=== PATIENT | female | born 1980 | race Two or more races ===

== ENCOUNTER 2025-08-03 17:40 | Inpatient (IN) | payer MEDICAID, OTHER ==
[~2025-08-03] VITALS: Ht 165.1 cm; Wt 42.1 kg
--- NOTE | 2025-08-03 18:12 | ED.PDOC ---
GI ASSESSMENT HPI Comments 45-year-old female who came to ER via EMS for nausea and vomiting. Patient is on hospice care for lung cancer with mets. Has been having episodes of nausea and vomiting for the past 5 hours, unable to keep anything in, even her medications. Noted generalized weakness. Blood sugar on scene was 102, saturating 98% on room air. Chief Complaint: Nausea/Vomiting Time Seen by MD: 18:11 Primary Care Provider: LAUREN Pbalo Notes: Nurses Notes, Cell Efficiency Supervisor Notes Allergies: Coded Allergies: NO KNOWN ALLERGIES (Unverified , 11/29/15) Information Source: Patient, Emergency Med Personnel Mode of Arrival: EMS Timing: Hours Duration: Since onset Vomitus: Watery Severity: Moderate Recent Hx of: Other (Lung cancer) Associated sign and symptoms: Nausea, Vomiting, Faintness Past Medical History PAST MEDICAL HISTORY: Cancer (Lung) Surgical History (Other): Ileostomy COMPUTER SPECIALIST History: Denies all COMPUTER SPECIALIST Hx Family History Family History: Reviewed,noncontributory to illness Social History Smoker: Non-Smoker Alcohol: Denies ETOH Use Drugs: Denies Drug Use Lives In: Home Constitutional: reports: weakness; denies: chills, diaphoresis, fatigue, fever, malaise, sweats, others EENTM: denies: blurred vision, double vision, ear bleeding, ear discharge, ear drainage, ear pain, ear ringing, eye pain, eye redness, hearing loss, mouth pain, mouth swelling, nasal discharge, nose bleeding, nose congestion, nose pain, photophobia, tearing, throat pain, throat swelling, voice changes, others Respiratory: denies: cough, hemoptysis, orthopnea, SOB at rest, shortness of breath, SOB with excertion, stridor, wheezing, others Cardiovascular: denies: chest pain, dizzy spells, diaphoresis, Dyspnea on exertion, edema, irregular heart beat, left arm pain, lightheadedness, palpitations, PND, syncope, others Gastrointestinal: reports: nausea, vomiting; denies: abdomen distended, abdominal pain, blood streaked bowels, constipated, diarrhea, dysphagia, diffi culty swallowing, hematemesis, melena, poor appetite, poor fluid intake, rectal bleeding, rectal pain, others Genitourinary: denies: abnormal vagina bleeding, burning, dyspareunia, dysuria, flank pain, frequency, hematuria, incontinence, pain, , vagina discharge, urgency, others Neurological: denies: dizziness, fainting, headache, left sided numbness, left sided weakness, numbness, paresthesia, pre-existing deficit, right sided numbness, right sided weakness, seizure, speech problems, tingling, tremors, weakness, others Musculoskeletal: denies: back pain, gout, joint pain, joint swelling, muscle pain, muscle stiffness, neck pain, others Integumetry: denies: bruises, change in color, change in hair/nails, dryness, laceration, lesions, lumps, rash, wounds, others Allergic/Immunocompromised: denies: Difficulty Healing, Frequent Infections, Hives, Itching, others Hematologic/Lymphatic: denies: anemia, blood clots, easy bleeding, easy bruising, swollen glands, others Endocrine: denies: excessive hunger, excessive sweating, excessive thirst, excessive urination, flushing, intolerance to cold, intolerance to heat, unexplained weight gain, unexplained weight loss, others Psychiatric: denies: anxiety, bipolar disorder, depression, hopeless, panic disorder, schizophrenia, sleepless, suicidal, others Physical Exam General Appearance: No Apparent Distress, Normal HEENT: Normal ENT Inspection, Pharynx Normal, TMs Normal Neck: Full Range of Motion, Non-Tender, Normal, Normal Inspection Respiratory: Chest Non-Tender, Lungs Clear, No Accessory Muscle Use, No Respiratory Distress, Normal Breath Sounds Cardiovascular: No Edema, No JVD, No Murmur, No Gallop, Normal Peripheral Pulses, Regular Rate/Rhythm Breast Exam: Deferred Gastrointestinal: No Organomegaly, Non Tender, No Pulsatile Mass, Normal Bowel Sounds, Soft Genitalia: Deferred Pelvic: Deferred Rectal: Deferred Extremities: No calf tenderness, Normal capillary refill, Normal inspection, Normal range of motion, Non-tender, No pedal edema Musculoskeletal : Apperance: Normal Neurologic: Alert, homoeopath II-XII nml as Tested, No Motor Deficits, Normal Affect, Normal Mood, No Sensory Deficits Cerebellar Function: Normal Reflexes: Normal Skin: Dry, Normal Color, Warm Lymphatic: No Adenopathy Was a procedure done? Was a procedure done?: No GI differential Dx Differential Diagnosis: Diverticular disease, Gastritis/PUD, Gastroenteritis, Dehydration, Electrolyte Imbalance, Food Poisoning X-Ray, Labs, Meds, VS Vital Signs Date Time Temp Pulse Resp B/P (MAP) Pulse Ox O2 Delivery O2 Flow Rate FiO2 08/03/25 18:03 107 08/03/25 17:50 98.0 103 16 163/112 98 98.0 Lab Test 08/03/25 19:05 Range/Units White Blood Count 21.9 H 4.4-10.8 10^3/uL Red Blood Count 4.07 4.0-5.20 10^6/uL Hemoglobin 11.4 L 12.2-16.2 g/dL Hematocrit 37.1 36.0-46.0 % Mean Corpuscular Volume 91.1 80.0-100.0 fL Mean Corpuscular Hemoglobin 28.0 28.0-32.0 pg Mean Corpuscular Hemoglobin Concent 30.7 L 32.0-36.0 g/dL Red Cell Distribution Width 19.1 H 11.8-14.3 % Platelet Count 623 H 140-450 10^3/uL Mean Platelet Volume 7.7 6.9-10.8 fL Neutrophils (%) (Auto) 89.4 H 37.0-80.0 % Lymphocytes (%) (Auto) 5.3 L 10.0-50.0 % Monocytes (%) (Auto) 4.7 0.0-12.0 % Eosinophils (%) (Auto) 0.5 0.0-7.0 % Basophils (%) (Auto) 0.1 0.0-2.0 % Neutrophils # (Auto) 19.6 H 1.6-8.6 10 ^3/uL Lymphocytes # (Auto) 1.2 0.4-5.4 10 ^3/uL Monocytes # (Auto) 1.0 0-1.3 10 ^3/uL Eosinophils # (Auto) 0.1 0-0.8 10 ^3/uL Basophils # (Auto) 0 0-0.2 10 ^3/uL Nucleated Red Blood Cells 0.0 % Sodium Level Pending Potassium Level Pending Chloride Level Pending Carbon Dioxide Level Pending Anion Gap Pending Blood Urea Nitrogen Pending Creatinine Pending Glomerular Filtration Rate Calc Pending BUN/Creatinine Ratio Pending Serum Glucose Pending Lactic Acid Level Pending Calcium Level Pending Magnesium Level Pending Total Bilirubin Pending Aspartate Amino Transferase (AST) Pending Alanine Aminotransferase (ALT) Pending Alkaline Phosphatase Pending Troponin I High Sensitivity Pending Total Protein Pending Albumin Pending PROCEDURE(s): ABPL - CT AB PEL WO CON-NO ORAL OR IV REASON: abd pain h/o colon cancer ORDER NUMBER(s): [id number], ACCESSION NUMBER(s): [id number] CLINICAL HISTORY: abd pain h/o colon cancer TECHNIQUE: CT of the abdomen and pelvis was performed without intravenous contrast. This exam was performed according to our departmental dose optimization program. Up-to-date CT equipment and radiation dose reduction techniques are utilized as appropriate. 5.07 CTDI: 5.07 DLP: 272.39 WID: COMPARISON: None FINDINGS: Lower Thorax: Multiple bibasilar pulmonary nodules. A office machines sales representative left lower lobe pulmonary nodule measures 9 mm on series 3, image 19. Heart size is normal. Liver and Biliary system: Hepatomegaly measuring 22 cm craniocaudal. There are multiple hypodense masses in both lobes of the liver. A hypodense lesion in segment 7 measures 4.7 cm on series 2, image 16. Gallbladder is normal caliber. There is no biliary ductal dilatation. Spleen: Unremarkable. Adrenal Glands and Kidneys: Normal adrenal glands. There is moderate right and severe left hydronephrosis which appears to transition at the pelvic brim. No discrete obstructing calculus is seen. Asymmetric atrophy of the left kidney. Pancreas and Retroperitoneum: Grossly normal pancreas. Mildly prominent retroperitoneal lymph nodes. Aorta and Major Vessels: A iliac vessels are normal in caliber. Bowel, Mesentery and Peritoneal space: Prior distal colon resection with distal colon anastomosis. The large bowel is decompressed. There is a right lower quadrant ostomy which contains a surgical clip and may be the site of ileocolonic anastomosis.. There is moderate fluid and gas distention of the stomach and multiple small bowel loops which appear diffusely dilated. The dilatation is more pronounced proximally where a left abdominal small bowel loop measures 4.1 cm on series 2, image 55. There is no free intraperitoneal air. Scattered nodules are seen throughout the mesentery. No well-formed fluid collection. Pelvis: Urinary bladder is mildly distended. There is no pelvic lymphadenopathy. Probable prior hysterectomy. Abdominal wall and Osseous Structures: No destructive osseous lesion. IMPRESSION: 1. Small-bowel obstruction with dilated small bowel, more pronounced in the left abdominal small bowel which measures up to 4.1 cm. The large bowel is decompressed. The transition may be at the level of the right lower quadrant ostomy. 2. No free air or abscess. 3. Prior distal colon resection with anastomosis. 4. Hepatic metastatic disease. 5. Pulmonary metastatic disease. 6. Moderate right and severe left hydronephrosis which appears turns transition at the level of the pelvic brim. No obstructing calculus is seen. Asymmetric atrophy of the left kidney. ATED BY: REYNA CASTRO MD DICTATED DATE/TIME: 08/03/251913 SIGNED BY: REYNA CASTRO MD CHEST RADIOGRAPH Indication: Sob Technique: Single frontal view of the chest was obtained COMPARISON: None FINDINGS: Lines and Tubes: None Lungs: Congestion Pleura: No effusion. No pneumothorax. Cardiomediastinal contours: Unremarkable Bones: Unremarkable IMPRESSION: Increased interstital prominence. This may represent pulmonary vascular congestion and/or viral pneumonia. Clinical correlation advised. Time of 1ST Reevaluation: 18:09 Reevaluation 1ST: Unchanged Patient Education/Counseling: Diagnosis, Treatment Family Education/Counseling: No Family Present SEPSIS Sepsis Screen Date sepsis recognized/suspect: Aug 03, 2025 Time Sepsis recognized/suspect: 1750 Recent Procedure: No On Antibiotic Therapy: No Respiratory Rate >20: No Heart Rate >90: Yes Temp<36 C (96.8 F) or >38.3 C: No SBP <90 or MAP <65 mmHG: No New Acute Mental Status Change: No Is the patient on CPAP, BIPAP,: No Physician Orders Comprehensive Metabolic Panel (08/03/25 18:00) Chest Portable (08/03/25 18:00) Urinalysis (08/03/25 18:00) Magnesium (08/03/25 18:00) Troponin-I Hs (08/04/25 00:00) Troponin-I Hs (08/04/25 03:00) Troponin-I Hs (08/04/25 06:00) Blood Culture (08/03/25 18:01) Electrocardigram (08/03/25 18:01) Lactic Acid W/ Reflex Order (08/03/25 18:01) Troponin-I Hs (08/03/25 19:01) Troponin-I Hs (08/03/25 21:01) Ct Ab Pel Wo Con-No Oral Or Iv (08/03/25 18:07) Vital Signs Date Time Temp Pulse Resp B/P (MAP) Pulse Ox O2 Delivery O2 Flow Rate FiO2 08/03/25 18:03 107 08/03/25 17:50 98.0 103 16 163/112 98 98.0 Laboratory Tests Test 08/03/25 19:05 Lactic Acid Level Pending White Blood Count 21.9 10^3/uL (4.4-10.8) H Departure 1 Departure Time of Disposition: 19:40 Impression: Primary Impression: Bowel obstruction Disposition: 02 SHORT TERM HOSPITAL Condition: Guarded Comments 45-year-old female with a history of colon cancer with lung Mets now with abdominal pain and generalized weakness. White blood cell count high at 21.9. CT of the abdomen and pelvis shows likely bowel obstruction. Patient is not vomiting in his reasonably pain controlled. Plan will be to contact [facility] for possible transfer for supportive care and further workup. Critical Care Note Critical Care Time?: Yes (35 min-critical care time only) Critical care comment: Total critical care time: Approximately 36 minutes Due to a high probability of clinically significant, life threatening deterioration, the patient required my highest level of preparedness to intervene emergently and I personally spent this critical care time directly and personally managing the patient. This critical care time included obtaining a history; examining the patient; pulse oximetry; ordering and review of studies; arranging urgent treatment with development of a management plan; evaluation of patient's response to treatment; frequent reassessment; and, discussions with other providers. This critical care time was performed to assess and manage the high probability of imminent, life-threatening deterioration that could result in multi-organ failure. It was exclusive of separately billable procedures and treating other patients. Stability Stability form required: No Heart Score Heart Score: Heart Score Response (Comments) Value History N/A 0 EKG N/A 0 Age N/A 0 Risk Factors N/A 0 Troponin N/A 0 Total 0 I personally scribed for CHANNING BROWER MD ([email or web address]) on 08/03/25 at 18:12. Electronically submitted by Papa Mullen ([email or web address]). I personally scribed for CHANNING BROWER MD ([email or web address]) on 08/03/25 at 19:01. Electronically submitted by Papa Mullen ([facility]). I personally scribed for CHANNING BROWER MD ([email or web address]) on 08/03/25 at 19:39. Electronically submitted by Papa Mullen ([facility]). CHANNING BROWER MD Aug 03, 2025 18:12
--- NOTE | 2025-08-03 18:35 | DVH ---
CHEST RADIOGRAPH Indication: Sob Technique: Single frontal view of the chest was obtained COMPARISON: None FINDINGS: Lines and Tubes: None Lungs: Congestion Pleura: No effusion. No pneumothorax. Cardiomediastinal contours: Unremarkable Bones: Unremarkable IMPRESSION: Increased interstital prominence. This may represent pulmonary vascular congestion and/or viral pneum onia. Clinical correlation advised.
--- NOTE | 2025-08-03 19:16 | DVH ---
CLINICAL HISTORY: abd pain h/o colon cancer TECHNIQUE: CT of the abdomen and pelvis was performed without intravenous contrast. This exam was per formed according to our departmental dose optimization program. Up-to-date CT equipment and radiation dose reduction techniques are utilized as appropriate. 5.07 CTDI: 5.07 DLP: 272.39 WID: COMPARISON: None FINDINGS: Lower Thorax: Multiple bibasilar pulmonary nodules. A fraud representative left lower lobe pulmonary nodul e measures 9 mm on series 3, image 19. Heart size is normal. Liver and Biliary system: Hepatomegaly measuring 22 cm craniocaudal. There are multiple hypodense ma sses in both lobes of the liver. A hypodense lesion in segment 7 measures 4.7 cm on series 2, image 1 6. Gallbladder is normal caliber. There is no biliary ductal dilatation. Spleen: Unremarkable. Adrenal Glands and Kidneys: Normal adrenal glands. There is moderate right and severe left hydronephr osis which appears to transition at the pelvic brim. No discrete obstructing calculus is seen. Asymm etric atrophy of the left kidney. Pancreas and Retroperitoneum: Grossly normal pancreas. Mildly prominent retroperitoneal lymph nodes. Aorta and Major Vessels: A iliac vessels are normal in caliber. Bowel, Mesentery and Peritoneal space: Prior distal colon resection with distal colon anastomosis. T he large bowel is decompressed. There is a right lower quadrant ostomy which contains a surgical clip and may be the site of ileocolonic anastomosis.. There is moderate fluid and gas distention of the s tomach and multiple small bowel loops which appear diffusely dilated. The dilatation is more pronounc ed proximally where a left abdominal small bowel loop measures 4.1 cm on series 2, image 55. There is no free intraperitoneal air. Scattered nodules are seen throughout the mesentery. No well-formed flu id collection. Pelvis: Urinary bladder is mildly distended. There is no pelvic lymphadenopathy. Probable prior hyste rectomy. Abdominal wall and Osseous Structures: No destructive osseous lesion. IMPRESSION: 1. Small-bowel obstruction with dilated small bowel, more pronounced in the left abdominal small elsie l which measures up to 4.1 cm. The large bowel is decompressed. The transition may be at the level o f the right lower quadrant ostomy. 2. No free air or abscess. 3. Prior distal colon resection with anastomosis. 4. Hepatic metastatic disease. 5. Pulmonary metastatic disease. 6. Moderate right and severe left hydronephrosis which appears turns transition at the level of the p elvic brim. No obstructing calculus is seen. Asymmetric atrophy of the left kidney.
[2025-08-03 19:35] LABS: Hematocrit 37.1 % (36.0-46.0); Hemoglobin 11.4 g/dL (12.2-16.2); Mean Corpuscular Hemoglobin 28.0 pg (28.0-32.0); Mean Corpuscular Volume 91.1 fL (80.0-100.0); Nucleated Red Blood Cells % 0.0 %
[2025-08-03 19:51] LABS: Alanine Aminotransferase 25 U/L (7-40); Albumin 4.8 g/dL (3.2-4.8); Anion Gap 15 (5-15); BUN/Creatinine Ratio 15.7 (10.0-20.0); Blood Urea Nitrogen 18 mg/dL (9-23); Calcium 9.8 mg/dL (8.7-10.4); Glucose 105 mg/dL (74-106); Magnesium 2.2 mg/dL (1.6-2.6); Potassium 4.5 mmol/L (3.5-5.1); Sodium 143 mmol/L (136-145)
[2025-08-03 19:52] LABS: Alkaline Phosphatase 261 U/L (46-116); Bilirubin, Total 0.2 mg/dL (0.2-1.0); Carbon Dioxide 15 mmol/L (20-31); Chloride 113 mmol/L (98-107); Total Protein 8.2 g/dL (5.7-8.2)
[2025-08-03] MEDS ORDERED: ACETAMINOPHEN 325 MG TAB PO PRN (22:00)
[2025-08-03] MEDS ORDERED: DOCUSATE SOD 100 MG CAP PO PRN (22:00)
[2025-08-03] MEDS ORDERED: HYDROcodone-ACET 5/325MG TAB PO PRN (22:00)
[2025-08-03] MEDS ORDERED: MORPHINE SULFATE INJ 2 MG/ml SYRG IV PRN (22:00)
[2025-08-03] MEDS: AZITHROMYCIN 500MG/ 250ML 250 ML IV ONE (22:00)
[2025-08-04] VITALS (20 sets, daily range): BP systolic 74–95; BP diastolic 43–69; PULSE 104–130; RESP 15–30; TEMP 97–98.6; O2SAT 95–100
[2025-08-04] MEDS ORDERED: NITROGLYCERIN 0.4 MG SL TAB SL PRN
[2025-08-04] MEDS ORDERED: MORPHINE SULFATE INJ 2 MG/ml SYRG IV PRN
--- NOTE | 2025-08-04 | DVHHP2 ---
History of Present Illness Reason for Visit: Small-bowel obstruction History of Present Illness The patient is a 45-year-old female with past medical history of lung cancer who presented to [facility] ED with complaint of intractable nausea and vomiting. Patient is on hospice care for lung cancer with Mets, has been experiencing episodes of nausea and vomiting for the past 1 day, unable to keep anything down including her medications, associated with generalized weakness. Patient was seen and evaluated in the ED, laboratory data shows WBC 21.9, platelets 623, sodium 143, potassium 4.5, BUN 18, creatinine 1.15, GFR 60, glucose 105 calcium 9.8, AST 56, ALT 25, troponin four, blood pressure 163/112, heart rate 102, temperature 98.0 F, O2 saturation 98% on room air. Chest x-ray revealing increased interstitial prominence; this may represent pulmonary vascular congestion and/or viral pneumonia. Abdomen/pelvis CT showed small bowel obstruction with dilated small bowel, more pronounced in the left abdominal wall bowel which measures up to 4.1 cm; the large bowel is compromise; transition may be at the level of the right lower quadrant ostomy; hepatic metastatic disease; pulmonary metastatic disease. Patient was started on IV antibiotic regimen Rocephin, please see medication orders section in the computer. On my assessment, patient denied chest pain, no headache, dizziness, shortness of breaths, no diarrhea, nausea or vomiting at this moment, fever, chills. Patient was admitted for further evaluation and medical management. Past Medical History Cancer (Lung) Past Surgical History Ileostomy Family History Reviewed, noncontributory to the management of this case. Past Social History The patient lives at home, denies smoking, alcohol or illicit drugs abuse. Review of Systems Constitutional: Yes: Weakness; No: Fever, Chills, Sweats, Malaise, Other Eyes: No: Pain, Vision change, Conjunctivae inflammation, Eyelid inflammation, Other, Redness ENT: No: Ear pain, Ear discharge, Nose pain, Nose discharge, Nose congestion, Mouth pain, Mouth swelling, Throat pain, Throat swelling, Other Respiratory: No: Cough, Dry, Shortness of breath, SOB with excertion, Wheezing, Hemoptysis, Pleuritic Pain, Sputum, Wheezing, Other Cardiovascular: No: Chest Pain, Palpitations, Orthopnea, Paroxysmal Noc. Dyspnea, Edema, Lt Headedness, Other Gastrointestinal: Nausea, Vomiting; No: Abdominal Pain, Diarrhea, Constipation, Melena, Hematochezia, Other Genitourinary: No Dysuria, No Frequency, No Incontinence, No Hematuria, No Retention, No Other Musculoskeletal: No: other, neck pain, shoulder pain, arm pain, back pain, hand pain, leg pain, foot pain Skin: No: Rash, Lesions, Jaundice, Bruising, Other Neurological: No: Weakness, Numbness, Incoordination, Change in speech, Confusion, Seizures, Other Allergies: Coded Allergies: NO KNOWN ALLERGIES (Unverified , 11/29/15) Medications Current Medications Medications Dose Ordered Sig/Sherlyn Route Start Time Stop Time Status Last Admin Dose Admin Pantoprazole Sodium 40 mg DAILY IV 08/04/25 10:00 Ceftriaxone Sodium 50 ml @ 100 mls/hr DAILY@2200 IV 08/04/25 22:00 Azithromycin 250 ml @ 125 mls/hr DAILY IV 08/04/25 10:00 UNV Sodium Chloride 10 ml Q8HR IV 08/03/25 22:00 Acetaminophen/ Hydrocodone Bitart 1 tab Q4HP PRN PO 08/03/25 22:00 Ondansetron HCl 4 mg Q4HP PRN IV 08/03/25 22:00 Docusate Sodium 100 mg BIDPRN PRN PO 08/03/25 22:00 Enoxaparin Sodium 40 mg DAILY SC 08/04/25 10:00 Acetaminophen 650 mg Q6HP PRN PO 08/03/25 22:00 Morphine Sulfate 2 mg Q4HPRN PRN IV 08/03/25 22:00 Exam Vital Signs Vital Signs Date Time Temp Pulse Resp B/P (MAP) Pulse Ox O2 Delivery O2 Flow Rate FiO2 08/03/25 18:03 107 08/03/25 17:50 98.0 16 163/112 98 98.0 General Appearance: Alert, Oriented X3, Cooperative, No acute distress HEENT: Atraumatic, PERRLA, EOMI, Mucous membr. moist/pink Respiratory: Normal air movement (Diminished breath sounds), Other (Diminished breath sounds) Cardiovascular: Regular rate, Normal S1, Normal S2, No murmurs Abdominal: Normal bowel sounds, Soft, No tenderness, No hepatospenomegaly, No masses, Other (Ileostomy) Extremities: No clubbing, No cyanosis, No edema, Normal pulses, No tenderness/swelling Skin: No rashes, No significant lesion Neuro: Normal speech, Normal tone, Sensation intact, Cranial nerves 3-12 NL, Reflexes 2+, Other (Generalized weakness) Psych/Mental Status: Mental status NL, Mood NL Labs/Xrays Labs Test 08/03/25 20:02 08/03/25 19:05 Range/Units Troponin I High Sensitivity < 3 L </=34 ng/L White Blood Count 21.9 H 4.4-10.8 10^3/uL Red Blood Count 4.07 4.0-5.20 10^6/uL Hemoglobin 11.4 L 12.2-16.2 g/dL Hematocrit 37.1 36.0-46.0 % Mean Corpuscular Volume 91.1 80.0-100.0 fL Mean Corpuscular Hemoglobin 28.0 28.0-32.0 pg Mean Corpuscular Hemoglobin Concent 30.7 L 32.0-36.0 g/dL Red Cell Distribution Width 19.1 H 11.8-14.3 % Platelet Count 623 H 140-450 10^3/uL Mean Platelet Volume 7.7 6.9-10.8 fL Neutrophils (%) (Auto) 89.4 H 37.0-80.0 % Lymphocytes (%) (Auto) 5.3 L 10.0-50.0 % Monocytes (%) (Auto) 4.7 0.0-12.0 % Eosinophils (%) (Auto) 0.5 0.0-7.0 % Basophils (%) (Auto) 0.1 0.0-2.0 % Neutrophils # (Auto) 19.6 H 1.6-8.6 10 ^3/uL Lymphocytes # (Auto) 1.2 0.4-5.4 10 ^3/uL Monocytes # (Auto) 1.0 0-1.3 10 ^3/uL Eosinophils # (Auto) 0.1 0-0.8 10 ^3/uL Basophils # (Auto) 0 0-0.2 10 ^3/uL Nucleated Red Blood Cells 0.0 % Sodium Level 143 136-145 mmol/L Potassium Level 4.5 3.5-5.1 mmol/L Chloride Level 113 H 98-107 mmol/L Carbon Dioxide Level 15 L 20-31 mmol/L Anion Gap 15 5-15 Blood Urea Nitrogen 18 9-23 mg/dL Creatinine 1.15 H 0.550-1.02 mg/dL Glomerular Filtration Rate Calc 60 >90 mL/min BUN/Creatinine Ratio 15.7 10.0-20.0 Serum Glucose 105 74-106 mg/dL Lactic Acid Level 1.5 0.4-2.0 mmol/L Calcium Level 9.8 8.7-10.4 mg/dL Magnesium Level 2.2 1.6-2.6 mg/dL Total Bilirubin 0.2 0.2-1.0 mg/dL Aspartate Amino Transferase (AST) 56 H 13-40 U/L Alanine Aminotransferase (ALT) 25 7-40 U/L Alkaline Phosphatase 261 H 46-116 U/L Total Protein 8.2 5.7-8.2 g/dL Albumin 4.8 3.2-4.8 g/dL PATIENT: YONATAN UNDERWOOD ACCT: [id number] UNIT: [id number] : 1980 LOC: ER ROOM / BED: / AGE / SEX: 45 / F ADM STATUS: REG ER SERVICE [id number] ORDERING PHYSICIAN: CHANNING BROWER MD PROCEDURE(s): ABPL - CT AB PEL WO CON-NO ORAL OR IV REASON: abd pain h/o colon cancer ORDER NUMBER(s): [id number], ACCESSION NUMBER(s): [id number] CLINICAL HISTORY: abd pain h/o colon cancer TECHNIQUE: CT of the abdomen and pelvis was performed without intravenous contrast. This exam was performed according to our departmental dose optimization program. Up-to-date CT equipment and radiation dose reduction techniques are utilized as appropriate. 5.07 CTDI: 5.07 DLP: 272.39 WID: COMPARISON: None FINDINGS: Lower Thorax: Multiple bibasilar pulmonary nodules. A healthcare representative left lower lobe pulmonary nodule measures 9 mm on series 3, image 19. Heart size is normal. Liver and Biliary system: Hepatomegaly measuring 22 cm craniocaudal. There are multiple hypodense masses in both lobes of the liver. A hypodense lesion in segment 7 measures 4.7 cm on series 2, image 16. Gallbladder is normal caliber. There is no biliary ductal dilatation. Spleen: Unremarkable. Adrenal Glands and Kidneys: Normal adrenal glands. There is moderate right and severe left hydronephrosis which appears to transition at the pelvic brim. No discrete obstructing calculus is seen. Asymmetric atrophy of the left kidney. Pancreas and Retroperitoneum: Grossly normal pancreas. Mildly prominent retroperitoneal lymph nodes. Aorta and Major Vessels: A iliac vessels are normal in caliber. Bowel, Mesentery and Peritoneal space: Prior distal colon resection with distal colon anastomosis. The large bowel is decompressed. There is a right lower q uadrant ostomy which contains a surgical clip and may be the site of ileocolonic anastomosis. There is moderate fluid and gas distention of the stomach and multiple small bowel loops which appear diffusely dilated. The dilatation is more pronounced proximally where a left abdominal small bowel loop measures 4.1 cm on series 2, image 55. There is no free intraperitoneal air. Scattered nodules are seen throughout the mesentery. No well-formed fluid collection. Pelvis: Urinary bladder is mildly distended. There is no pelvic lymphadenopathy. Probable prior hysterectomy. Abdominal wall and Osseous Structures: No destructive osseous lesion. IMPRESSION: 1. Small-bowel obstruction with dilated small bowel, more pronounced in the left abdominal small bowel which measures up to 4.1 cm. The large bowel is decompressed. The transition may be at the level of the right lower quadrant ostomy. 2. No free air or abscess. 3. Prior distal colon resection with anastomosis. 4. Hepatic metastatic disease. 5. Pulmonary metastatic disease. 6. Moderate right and severe left hydronephrosis which appears turns transition at the level of the pelvic brim. No obstructing calculus is seen. Asymmetric atrophy of the left kidney. ORDERING PHYSICIAN: CHANNING BROWER MD PROCEDURE(s): CXRP - CHEST PORTABLE REASON: Sob ORDER NUMBER(s): [id number], ACCESSION NUMBER(s): [id number] CHEST RADIOGRAPH Indication: Sob Technique: Single frontal view of the chest was obtained COMPARISON: None FINDINGS: Lines and Tubes: None Lungs: Congestion Pleura: No effusion. No pneumothorax. Cardiomediastinal contours: Unremarkable Bones: Unremarkable IMPRESSION: Increased interstitial prominence. This may represent pulmonary vascular congestion and/or viral pneumonia. Clinical correlation advised. SEPSIS Sepsis Screen Date sepsis recognized/suspect: Aug 03, 2025 Time Sepsis recognized/suspect: 1750 Recent Procedure: No On Antibiotic Therapy: No Respiratory Rate >20: No Heart Rate >90: Yes Temp<36 C (96.8 F) or >38.3 C: No SBP <90 or MAP <65 mmHG: No New Acute Mental Status Change: No Is the patient on CPAP, BIPAP,: No Physician Orders Chest Portable (08/03/25 18:00) Urinalysis (08/03/25 18:00) Blood Culture (08/03/25 18:01) Electrocardigram (08/03/25 18:01) Ct Ab Pel Wo Con-No Oral Or Iv (08/03/25 18:07) * Surgical Consult (08/03/25 ) Pantoprazole (Protonix) (08/04/25 10:00) Ceftriaxone 1gm/50ml (Rocephin) (08/04/25 22:00) Azithromycin 500mg/ 250ml (Zithromax 50 (08/04/25 10:00) Ngt/Ogt (08/03/25 ) Code Status (08/03/25 22:00) Sodium Chloride Lock (Saline Lock Ns) (08/03/25 22:00) Oxygen Per Hour (08/03/25 22:00) Hydrocodone-Acet 5/325mg Tab ([place] 5/32 (08/03/25 22:00) Ondansetron Hcl (Zofran) (08/03/25 22:00) Docusate Sodium Capsule (Colace Capsule) (08/03/25 22:00) Enoxaparin Sodium (Lovenox) (08/04/25 10:00) Complete Blood Count (08/04/25 04:00) Comprehensive Metabolic Panel (08/04/25 04:00) Acetaminophen Tablet (Tylenol Tablet) (08/03/25 22:00) Clear Liq Diet (08/04/25 Breakfast) Morphine Sulfate Injection (08/03/25 22:00) Admit (08/03/25 23:58) Nitroglycerin Sublingual (Ntrostat Subli (08/04/25 00:00) Morphine Sulfate Injection (08/04/25 00:00) Stat Ekg For Chest Pain (08/03/25 23:58) Notify Of Changes From Base (08/03/25 23:58) Checkroom Chief For 24 Hours (08/03/25 23:58) Emergency Dysrhythmia Protocol (08/03/25 23:58) Rhythm Strips Once Every Shift (08/03/25 23:58) Oxygen By Nasal Cannula (08/03/25 23:58) Vital Signs Date Time Temp Pulse Resp B/P (MAP) Pulse Ox O2 Delivery O2 Flow Rate FiO2 08/03/25 18:03 107 08/03/25 17:50 98.0 103 16 163/112 98 98.0 Laboratory Tests Test 08/03/25 19:05 Lactic Acid Level 1.5 mmol/L (0.4-2.0) White Blood Count 21.9 10^3/uL (4.4-10.8) H Assessment/Plan Assessment/Plan Small-bowel obstruction Thrombocytosis Metastatic disease Hypertensive urgency Leukocytosis, unspecified Generalized weakness Intractable nausea and vomiting Pneumonia, unspecified organism Plan 1. Admit to telemetry unit 2. Breathing treatment 3. Pain control management 4. IV antibiotic management 5. Management of fluids and electrolytes 6. Consultation for surgery/hospitalist 7. Diagnostic test abdomen/pelvis CT 8. DVT prophylaxis on SCDs 9. Repeat labs CBC, CMP in a.m. 10. Home medication reviewed and reconciled 11. Continue with current medical management 12. Treatment plan discussed with patient and RN. Patient verbalized understanding. Plan discussed with: Patient, Other (RN) My Orders Orders - ZELDA SHARMA DNP Procedure Category Date Status Time * Surgical Consult CONS 08/03/25 Transmitted Pantoprazole PHA 08/04/25 In Process (Protonix) 10:00 Ceftriaxone 1gm/50ml PHA 08/04/25 In Process (Rocephin) 22:00 Azithromycin 500mg/ PHA 08/04/25 Pending 250ml (Zithromax 50 10:00 Ngt/Ogt ED NURSING 08/03/25 Transmitted Code Status CODE 08/03/25 Transmitted 22:00 Sodium Chloride Lock PHA 08/03/25 In Process (Saline Lock Ns) 22:00 Oxygen Per Hour RT 08/03/25 Transmitted 22:00 Hydrocodone-Acet PHA 08/03/25 In Process 5/325mg Tab ([place] 22:00 Ondansetron Hcl PHA 08/03/25 In Process (Zofran) 22:00 Docusate Sodium PHA 08/03/25 In Process Capsule (Colace 22:00 Enoxaparin Sodium PHA 08/04/25 In Process (Lovenox) 10:00 Complete Blood Count LAB 08/04/25 Verified 04:00 Comprehensive LAB 08/04/25 Verified Metabolic Panel 04:00 Acetaminophen Tablet [facility] 08/03/25 In Process (Tylenol Tablet) 22:00 Clear Liq Diet DIET 08/04/25 Transmitted Breakfast Morphine Sulfate [facility] 08/03/25 In Process Injection 22:00 Admit ADMIT 08/03/25 Verified 23:58 Nitroglycerin [facility] 08/04/25 Verified Sublingual (Ntrostat 00:00 Morphine Sulfate [facility] 08/04/25 Verified Injection 00:00 Stat Ekg For Chest [facility] 08/03/25 Verified Pain 23:58 Notify Md Of Changes [facility] 08/03/25 Verified From Base 23:58 Checkroom Chief For [facility] 08/03/25 Verified 24 Hours 23:58 Emergency Dysrhythmia [facility] 08/03/25 Verified Protocol 23:58 Rhythm Strips Once [facility] 08/03/25 Verified Every Shift 23:58 Oxygen By Nasal RT 08/03/25 Verified Cannula 23:58 Problem List: (1) Small bowel obstruction (2) Thrombocytosis (3) Metastatic disease (4) Hypertensive urgency (5) Generalized weakness (6) Leukocytosis, unspecified (7) Pneumonia, unspecified organism (8) Intractable nausea and vomiting Date of Service: Aug 03, 2025 Billing Provider: ZELDA SHARMA DNP Common Visit Codes: [id number] INP/OBS CARE (HIGH) ZELDA SHARMA DNP Aug 04, 2025 00:00
[2025-08-04] MEDS ORDERED: LABETALOL HCL 20 MG/4 ML VL IV PRN (00:15)
[2025-08-04] MEDS: SODIUM CHLOR 0.9% PF (SALINE LOCK) 10ML VIAL/SYR IV SCH (00:26)
[2025-08-04] MEDS: SODIUM CHLORIDE 0.9% 1,000 ML IVB ONE (01:12)
[2025-08-04] MEDS: ONDANSETRON HCL 4 MG/2 ML VIAL IV ONE (01:19)
[2025-08-04] MEDS: PANTOPRAZOLE 40 MG/10 ML VIAL INJ IV ONE (01:20)
[2025-08-04] MEDS: ONDANSETRON HCL 4 MG/2 ML VIAL ONE (01:25)
[2025-08-04] MEDS: SODIUM CHLORIDE 0.9% 500 ML IV ONE (02:50)
[2025-08-04] MEDS: MIDODRINE HCL 10 MG TAB PO ONE (02:50)
[2025-08-04] MEDS: MIDODRINE HCL 10 MG TAB PO SCH (05:51)
--- NOTE | 2025-08-04 06:36 | ECG ---
[facility] Test Date: 2025-08-03 Test Time: 18:01:07 Pat Name: YONATAN UNDERWOOD Department: [facility] ED Patient ID: [id number] Room: 0265 Gender: F Wool [employer]her Feeder: CHAMP : 1980 Requested By: CHANNING BROWER Order Number: [id number] Reading MD: Roland Duque Measurements Intervals [place] Rate: 107 P: 29 MN: 130 QRS: 48 QRSD: 80 T: 18 QT: 345 QTc: 461 Interpretive Statements Sinus tachycardia Probable left atrial enlargement Borderline T abnormalities, anterior leads Electronically Signed On 08-05-2025 18:45:33 PDT by Roland Duque Please click the below link to view image of tracing.
[2025-08-04 07:26] LABS: Hematocrit 35.5 % (36.0-46.0); Hemoglobin 10.7 g/dL (12.2-16.2); Mean Corpuscular Hemoglobin 27.5 pg (28.0-32.0); Mean Corpuscular Volume 91.2 fL (80.0-100.0)
[2025-08-04 08:18] LABS: Total Cells Counted 100.0 (100)
[2025-08-04] MEDS: AZITHROMYCIN 500MG/ 250ML 250 ML IV SCH (09:12)
[2025-08-04 10:02] LABS: Alanine Aminotransferase 22 U/L (7-40); Albumin 3.6 g/dL (3.2-4.8); Anion Gap 14 (5-15); BUN/Creatinine Ratio 13.5 (10.0-20.0); Bilirubin, Total 0.4 mg/dL (0.2-1.0); Glucose 82 mg/dL (74-106); Potassium 3.9 mmol/L (3.5-5.1); Sodium 142 mmol/L (136-145); Total Protein 6.6 g/dL (5.7-8.2)
[2025-08-04 10:16] LABS: Alkaline Phosphatase 185 U/L (46-116); Blood Urea Nitrogen 23 mg/dL (9-23); Calcium 8.7 mg/dL (8.7-10.4); Carbon Dioxide 13 mmol/L (20-31); Chloride 115 mmol/L (98-107)
[2025-08-04] MEDS: ENOXAPARIN SOD 40 MG/0.4 ML SYRINGE SC SCH (10:46)
[2025-08-04] MEDS: PANTOPRAZOLE 40 MG/10 ML VIAL INJ IV SCH (10:46)
--- NOTE | 2025-08-04 12:37 | DVHPN2 ---
Subjective The patient is seen and examined at bedside. No complaint today. Looks tired. Reviewed: Care Plan, H&P, Labs, Medications, Previous Orders, Radiology Changes from previous H/P or p: No Changes Eyes: No Pain, No Vision change, No Conjunctivae inflammation, No Eyelid inflammation, No Other, No Redness ENT: No Ear pain, No Ear discharge, No Nose pain, No Nose discharge, No Nose congestion, No Mouth pain, No Mouth swelling, No Throat pain, No Throat swelling, No Other Cardiovascular: No Chest Pain, No Palpitations, No Orthopnea, No Paroxysmal Noc. Dyspnea, No Edema, No Lt Headedness, No Other Respiratory: No Cough, No Dry, No Shortness of breath, No SOB with excertion, No Wheezing, No Hemoptysis, No Pleuritic Pain, No Sputum, No Other Gastrointestinal: Nausea, Vomiting; No Abdominal Pain, No Diarrhea, No Constipation, No Melena, No Hematochezia, No Other Genitourinary: No Dysuria, No Frequency, No Incontinence, No Hematuria, No Retention, No Other Musculoskeletal: No other, No neck pain, No shoulder pain, No arm pain, No back pain, No hand pain, No leg pain, No foot pain Skin: No Rash, No Lesions, No Jaundice, No Bruising, No Other Objective Vitals Vital Signs Date Time Temp Pulse Resp B/P (MAP) Pulse Ox O2 Delivery O2 Flow Rate FiO2 08/04/25 09:00 97.0 110 20 91/55 (67) 99 97.0 08/04/25 08:12 Nasal Cannula* 4 36 Intake/Output Intake and Output 08/04/25 07:00 Intake Total 400 ml Balance 400 ml Intake Oral 400 ml General Appearance: Alert, Cooperative, No acute distress HEENT: Atraumatic, PERRLA, EOMI, Mucous membr. moist/pink Neck: Supple Lungs: Clear to auscultation, Normal air movement Cardiovascular: Regular rate, Normal S1, Normal S2, No murmurs, Gallops, Rubs Abdomen: Normal bowel sounds, Soft, No tenderness Neuro: Cranial nerves 3-12 NL Psych/Mental Status: Mental status NL Medications Current Medications Medications Dose Ordered Sig/Sherlyn Route Start Time Stop Time Status Last Admin Dose Admin Pantoprazole Sodium 40 mg DAILY IV 08/04/25 10:00 08/04/25 10:46 40 MG Ceftriaxone Sodium 50 ml @ 100 mls/hr DAILY@2200 IV 08/04/25 22:00 Azithromycin 250 ml @ 125 mls/hr DAILY IV 08/04/25 10:00 08/04/25 09:12 125 MLS/HR Sodium Chloride 10 ml Q8HR IV 08/03/25 22:00 08/04/25 05:11 10 ML Acetaminophen/ Hydrocodone Bitart 1 tab Q4HP PRN PO 08/03/25 22:00 Ondansetron HCl 4 mg Q4HP PRN IV 08/03/25 22:00 Docusate Sodium 100 mg BIDPRN PRN PO 08/03/25 22:00 Enoxaparin Sodium 40 mg DAILY SC 08/04/25 10:00 08/04/25 10:46 40 MG Acetaminophen 650 mg Q6HP PRN PO 08/03/25 22:00 Nitroglycerin 0.4 mg Q5MINP PRN SL 08/04/25 00:00 Morphine Sulfate 2 mg Q30M PRN IV 08/04/25 00:00 Labetalol HCl 10 mg Q2HPRN PRN IV 08/04/25 00:15 Hydromorphone HCl 0.5 mg Q4HPRN PRN IV 08/04/25 00:45 Midodrine 10 mg TID@0600,1200,1800 PO 08/04/25 06:00 08/04/25 11:16 10 MG Laboratory Results Laboratory Tests 08/04/25 07:00 08/04/25 09:23 Chemistry Test 08/03/25 19:05 08/04/25 09:23 Albumin 4.8 g/dL (3.2-4.8) 3.6 g/dL (3.2-4.8) Calcium Level 9.8 mg/dL (8.7-10.4) 8.7 mg/dL (8.7-10.4) Magnesium Level 2.2 mg/dL (1.6-2.6) Total Protein 8.2 g/dL (5.7-8.2) 6.6 g/dL (5.7-8.2) LFT Test 08/03/25 19:05 08/04/25 09:23 Alanine Aminotransferase (ALT) 25 U/L (7-40) 22 U/L (7-40) Alkaline Phosphatase 261 U/L (46-116) H 185 U/L (46-116) H Aspartate Amino Transferase (AST) 56 U/L (13-40) H 87 U/L (13-40) H Total Bilirubin 0.2 mg/dL (0.2-1.0) 0.4 mg/dL (0.2-1.0) Labs and/or images reviewed: Labs reviewed by me Assessment/Plan Assessment/Plan Small-bowel obstruction Thrombocytosis Metastatic disease Hypertensive urgency, now become hypotension Leukocytosis, unspecified Generalized weakness Intractable nausea and vomiting Pneumonia, unspecified organism Plan Continuing current management. I will give a bolus 1 L of normal saline. Blood pressure now is in the 80/40. If not improve after the fluid resuscitation anticipate to upgrade the patient and start the patient on Levophed. Continuing with IV antibiotic. We will follow up with culture. This medical document was created using an electronic medical record system with [employer] direct computerized dictation system. Although this document has been carefully reviewed, there may still be some phonetic and typographical errors. These areas are purely typographical due to imperfections of the software programs, and do not reflect any compromise in the patient's medical care. Plan discussed with: Patient Date of Service: Aug 04, 2025 Billing Provider: MAGY BARCLAY MD Common Visit Codes: [id number] INP/OBS CARE(HIGH) MAGY BARCLAY MD Aug 04, 2025 12:37
[2025-08-04] MEDS: SODIUM CHLORIDE 0.9% 1,000 ML IV SCH (15:24)
[2025-08-04] MEDS: D5W/SOD CHL 0.45%/KCL 20MEQ 1,000 ML IV SCH (19:50)
[2025-08-04] MEDS: NOREPINEPHRINE 8 MG/250ML KIT 250 ML IV SCH (20:54)
[2025-08-04] MEDS: NOREPINEPHRINE 8 MG/250ML KIT 250 ML IV ONE (20:55)
[2025-08-05] VITALS (87 sets, daily range): BP systolic 79–116; BP diastolic 49–85; PULSE 92–126; RESP 16–32; TEMP 97.5–99; O2SAT 80–100
[2025-08-05] MEDS: HYDROmorphone HCL 2 MG/ML VL/or syr IV PRN (01:38)
[2025-08-05 03:40] LABS: Anion Gap 15 (5-15); Potassium 5.0 mmol/L (3.5-5.1); Sodium 139 mmol/L (136-145)
[2025-08-05 03:42] LABS: Calcium 7.6 mg/dL (8.7-10.4); Carbon Dioxide 11 mmol/L (20-31); Chloride 113 mmol/L (98-107)
[2025-08-05 03:46] LABS: BUN/Creatinine Ratio 14.4 (10.0-20.0); Glucose 85 mg/dL (74-106)
[2025-08-05 03:47] LABS: Hematocrit 33.1 % (36.0-46.0); Hemoglobin 10.2 g/dL (12.2-16.2); Mean Corpuscular Hemoglobin 28.0 pg (28.0-32.0); Mean Corpuscular Volume 91.1 fL (80.0-100.0)
[2025-08-05 03:57] LABS: Blood Urea Nitrogen 28 mg/dL (9-23)
[2025-08-05 06:50] LABS: Total Cells Counted 100.0 (100)
[2025-08-05] MEDS ORDERED: VANCOMYCIN PER PHARMACY 0 MG IV SCH (10:00)
--- NOTE | 2025-08-05 10:24 | DVHINCON2 ---
Date of service: Aug 05, 2025 Reason for Consultation small bowel obstruction History of Present Illness History Source: Patient, Notes HPI 45-year-old female with past medical history of lung cancer who presented to [facility] ED with complaint of intractable nausea and vomiting. Patient is on hospice care for lung cancer with Mets, has been experiencing episodes of nausea and vomiting for the past 1 day, unable to keep anything down including her medications, associated with generalized weakness. Abdomen/pelvis CT showed small bowel obstruction with dilated small bowel, more pronounced in the left abdominal wall bowel which measures up to 4.1 cm; the large bowel is compromise; transition may be at the level of the right lower quadrant ostomy; hepatic metastatic disease; pulmonary metastatic disease. patient has fecal matter in colostomy bag. Abdomen soft non distended. Chief Complaint of Abdominal/F: Abdominal pain Location of Abdominal Onset: Generalized abdomen Past Medical History Cardiac: No pertinent Hx Pulmonary: Lung cancer Central Nervous System: No pertinent Hx GI: No pertinent Hx Hemotology/Oncology: No pertinent Hx Hepatobiliary: No pertinent Hx Psychiatric: No pertinent Hx Musculoskeletal: No pertinent Hx Rheumotologic: No pertinent Hx Infectious Disease: No peritnent Hx ENT: No pertinent Hx Renal/: No pertinent Hx Endocrine: No pertinent Hx Dermatology: No pertinent Hx Smoker: No Hx (Negative) Alocohol: None Drugs: None Lives with: With family Review of Systems Constitutional: Weakness Ears, Nose, & Throat: No symptom reported Eyes: No symptom reported Pulmonary/Respiratory: No symptom reported Cardiovascular: No symptom reported Gastrointestinal: Abdominal Pain Genitourinary: No symptom reported Musculoskeletal: No symptom reported Skin: No symptom reported Psychiatric: No symptom reported Endocrine: No symptom reported Hemotologic/Lymphatic: No symptom reported H&P Exam Vital Signs Vital Signs Date Time Temp Pulse Resp B/P (MAP) Pulse Ox O2 Delivery O2 Flow Rate FiO2 08/05/25 08:51 119 28 99/67 08/05/25 07:15 96 08/05/25 06:00 Nasal Cannula* 4 36 08/05/25 04:00 98.7 98.7 General Appeara: Cachetic, Mild distress Pulmonary/Respiratory: Normal inspection Cardiovascular/Chest: Normal inspection Abdominal Exam: Soft Abdominal Pain Onset Location: Generalized abdomen Neuro/Mental St: Alert Eye contact/ Speech: Cooperative, Good eye contact Labs/Xrays Labs Test 08/05/25 02:45 08/04/25 09:23 08/03/25 20:02 08/03/25 19:05 Range/Units White Blood Count 41.2 *H 4.4-10.8 10^3/uL Red Blood Count 3.63 L 4.0-5.20 10^6/uL Hemoglobin 10.2 L 12.2-16.2 g/dL Hematocrit 33.1 L 36.0-46.0 % Mean Corpuscular Volume 91.1 80.0-100.0 fL Mean Corpuscular Hemoglobin 28.0 28.0-32.0 pg Mean Corpuscular Hemoglobin Concent 30.7 L 32.0-36.0 g/dL Red Cell Distribution Width 18.7 H 11.8-14.3 % Platelet Count 455 H 140-450 10^3/uL Mean Platelet Volume 8.0 6.9-10.8 fL Neutrophils (%) (Auto) 37.0-80.0 % Lymphocytes (%) (Auto) 10.0-50.0 % Monocytes (%) (Auto) 0.0-12.0 % Basophils (%) (Auto) 0.0-2.0 % Neutrophils # (Auto) 1.6-8.6 10 ^3/uL Lymphocytes # (Auto) 0.4-5.4 10 ^3/uL Monocytes # (Auto) 0-1.3 10 ^3/uL Differential Total Cells Counted 100.0 100 Neutrophils % (Manual) 60 37.0-80.0 Band Neutrophils % (Manual) 28 Lymphocytes % (Manual) 8 L 10.0-50.0 Monocytes % (Manual) 4 0-12 Eosinophils % (Manual) 0 0-7 Basophils % (Manual) 0 0.0-2.0 Metamyelocytes % (manual) 0 Myelocytes % (Manual) 0 Promyelocytes % (Manual) 0 Blast Cells % (Manual) 0 Reactive Lymphocytes 0 Platelet Estimate Increased Sodium Level 139 136-145 mmol/L Potassium Level 5.0 3.5-5.1 mmol/L Chloride Level 113 H 98-107 mmol/L Carbon Dioxide Level 11 L 20-31 mmol/L Anion Gap 15 5-15 Blood Urea Nitrogen 28 H 9-23 mg/dL Creatinine 1.94 H 0.550-1.02 mg/dL Glomerular Filtration Rate Calc 32 >90 mL/min BUN/Creatinine Ratio 14.4 10.0-20.0 Serum Glucose 85 74-106 mg/dL Calcium Level 7.6 L 8.7-10.4 mg/dL Total Bilirubin 0.4 0.2-1.0 mg/dL Aspartate Amino Transferase (AST) 87 H 13-40 U/L Alanine Aminotransferase (ALT) 22 7-40 U/L Alkaline Phosphatase 185 H 46-116 U/L Total Protein 6.6 5.7-8.2 g/dL Albumin 3.6 3.2-4.8 g/dL Troponin I High Sensitivity < 3 L </=34 ng/L Eosinophils (%) (Auto) 0.5 0.0-7.0 % Eosinophils # (Auto) 0.1 0-0.8 10 ^3/uL Basophils # (Auto) 0 0-0.2 10 ^3/uL Nucleated Red Blood Cells 0.0 % Lactic Acid Level 1.5 0.4-2.0 mmol/L Magnesium Level 2.2 1.6-2.6 mg/dL Microbiology Date/Time Source Procedure Growth Status 08/03/25 19:05 Blood Blood Culture - Preliminary NO GROWTH AFTER 24 HOURS OF INCUBATION. Resulted Assessment/Plan Problem List: (1) Bowel obstruction Plan labs, note reviewed abdomen soft , non distended, tender to palpation fecal matter in colostomy bag , possible partial bowel obstruction Plan small bowel series with Gastrografin NPO NGT to LCS Plan discussed with: Patient, Other (Dr. Low) Visit Coding Surgery Date of Service if different f: Aug 05, 2025 Billing Provider: JOSEFINA LOW MD Surgery Visit Codes: [id number] - INP CONSULT <80 MIN KAROLINA GOLDBERG ATMOSPHERIC CHEMIST Aug 05, 2025 10:24
[2025-08-05] MEDS ORDERED: VANCOMYCIN 750MG KIT 100 ML IV ONE (10:30)
--- NOTE | 2025-08-05 10:53 | DVH ---
CHEST RADIOGRAPH Indication: confirm ngt placement Technique: XY CHEST PORTABLE COMPARISON: 08/03/2025 FINDINGS: Nasogastric tube projects towards stomach. The cardiac silhouette is enlarged. The lungs demonstrate bilateral patchy airspace opacities. Multip le lung nodules including right lung nodules measuring 12 mm, 9 mm, left lower lobe measuring 14 mm, 8 mm The pulmonary vasculature is prominent. There is no pleural effusion. There is no pneumothorax. IMPRESSION: Cardiomegaly with pulmonary vascular congestion and bilateral patchy airspace opacities. Pulmonary nodules bilaterally consistent with metastatic disease.
[2025-08-05] MEDS: VANCOMYCIN 500mg/100mL 100 ML IV ONE (13:45)
[2025-08-05] MEDS: GASTROGRAFIN 120 ML SOL ONE (14:06)
--- NOTE | 2025-08-05 14:36 | DVHPN2 ---
Subjective The patient is seen and examined at bedside. No complaint today. Looks tired. Reviewed: Care Plan, H&P, Labs, Medications, Previous Orders, Radiology Changes from previous H/P or p: No Changes Eyes: No Pain, No Vision change, No Conjunctivae inflammation, No Eyelid inflammation, No Other, No Redness ENT: No Ear pain, No Ear discharge, No Nose pain, No Nose discharge, No Nose congestion, No Mouth pain, No Mouth swelling, No Throat pain, No Throat swelling, No Other Cardiovascular: No Chest Pain, No Palpitations, No Orthopnea, No Paroxysmal Noc. Dyspnea, No Edema, No Lt Headedness, No Other Respiratory: No Cough, No Dry, No Shortness of breath, No SOB with excertion, No Wheezing, No Hemoptysis, No Pleuritic Pain, No Sputum, No Other Gastrointestinal: Nausea, Vomiting; No Abdominal Pain, No Diarrhea, No Constipation, No Melena, No Hematochezia, No Other Genitourinary: No Dysuria, No Frequency, No Incontinence, No Hematuria, No Retention, No Other Musculoskeletal: No other, No neck pain, No shoulder pain, No arm pain, No back pain, No hand pain, No leg pain, No foot pain Skin: No Rash, No Lesions, No Jaundice, No Bruising, No Other Objective Vitals Vital Signs Date Time Temp Pulse Resp B/P (MAP) Pulse Ox O2 Delivery O2 Flow Rate FiO2 08/05/25 12:45 112 20 107/62 (77) 99 08/05/25 12:00 Nasal Cannula* 4 36 08/05/25 12:00 97.5 97.5 Intake/Output Intake and Output 08/05/25 07:00 Intake Total 2201.25 ml Output Total 850 ml Balance 1351.25 ml Intake Oral 0 ml IV Total 2201.25 ml Output Stool Total 600 ml Gastric Drainage Total 250 ml # Voids 1 General Appearance: Alert, Cooperative, No acute distress HEENT: Atraumatic, PERRLA, EOMI, Mucous membr. moist/pink Neck: Supple Lungs: Clear to auscultation, Normal air movement Cardiovascular: Regular rate, Normal S1, Normal S2, No murmurs, Gallops, Rubs Abdomen: Normal bowel sounds, Soft, No tenderness Neuro: Cranial nerves 3-12 NL Psych/Mental Status: Mental status NL Medications Current Medications Medications Dose Ordered Sig/Sherlyn Route Start Time Stop Time Status Last Admin Dose Admin Pantoprazole Sodium 40 mg DAILY IV 08/04/25 10:00 08/05/25 10:22 40 MG Sodium Chloride 10 ml Q8HR IV 08/03/25 22:00 08/05/25 05:55 10 ML Acetaminophen/ Hydrocodone Bitart 1 tab Q4HP PRN PO 08/03/25 22:00 Ondansetron HCl 4 mg Q4HP PRN IV 08/03/25 22:00 Docusate Sodium 100 mg BIDPRN PRN PO 08/03/25 22:00 Enoxaparin Sodium 40 mg DAILY SC 08/04/25 10:00 08/05/25 10:23 40 MG Acetaminophen 650 mg Q6HP PRN PO 08/03/25 22:00 Nitroglycerin 0.4 mg Q5MINP PRN SL 08/04/25 00:00 Morphine Sulfate 2 mg Q30M PRN IV 08/04/25 00:00 Labetalol HCl 10 mg Q2HPRN PRN IV 08/04/25 00:15 Hydromorphone HCl 0.5 mg Q4HPRN PRN IV 08/04/25 00:45 08/05/25 08:51 0.5 MG Midodrine 10 mg TID@0600,1200,1800 PO 08/04/25 06:00 08/05/25 05:55 10 MG Potassium Chloride/Dextrose/ Sod Cl 1,000 ml @ 120 mls/hr Q8H20M IV 08/04/25 18:30 08/05/25 13:39 120 MLS/HR Norepinephrine Bitartrate 250 ml @ 3.75 mls/hr Q24H IV 08/04/25 19:45 08/05/25 07:45 26.25 MLS/HR Piperacillin Sod/ Tazobactam Sod 100 ml @ 25 mls/hr Q8HR IV 08/05/25 14:00 Vancomycin HCl 0 ml @ 0 mls/hr UD IV 08/05/25 10:00 UNV Laboratory Results Laboratory Tests 08/05/25 02:45 Chemistry Test 08/05/25 02:45 Calcium Level 7.6 mg/dL (8.7-10.4) L Microbiology Microbiology Date/Time Source Procedure Growth Status 08/04/25 21:00 Nose MRSA Screen - Final Complete 08/03/25 19:05 Blood Blood Culture - Preliminary NO GROWTH AFTER 24 HOURS OF INCUBATION. Resulted Labs and/or images reviewed: Labs reviewed by me, Image(s) reviewed by me Assessment/Plan Assessment/Plan Small-bowel obstruction Thrombocytosis Metastatic disease Hypertensive urgency, now become hypotension Leukocytosis, unspecified Generalized weakness Intractable nausea and vomiting Pneumonia, unspecified organism Sepsis Plan Continuing current management. status post fluid resuscitation, bolus with normal saline. Now required Vasopressor medication Patient has been upgrade to ICU for close follow up. Continuing with IV antibiotic. I d/c Rocephin. I will put patient on Vancomycin IV pharmacy to dose and Zosyn 3.375gm IV q 8hours We will follow up with culture. Surgery input appreciate. S/p Gastrografin. Will follow up. This medical document was created using an electronic medical record system with [employer] direct computerized dictation system. Although this document has been carefully reviewed, there may still be some phonetic and typographical errors. These areas are purely typographical due to imperfections of the software programs, and do not reflect any compromise in the patient's medical care. Plan discussed with: Patient My Orders Orders - MAGY BARCLAY MD Procedure Category Date Status Time Piperacillin-Tazob PHA 08/05/25 In Process 3.375gm (Zosyn 3.375g 14:00 Vancomycin Per PHA 08/05/25 Pending Pharmacy 10:00 Insert Ell[place] Catheter DOLORES 08/05/25 In Process 14:04 * Picc Line Consult CONS 08/05/25 Transmitted 14:04 Date of Service: Aug 05, 2025 Billing Provider: MAGY BARCLAY MD Common Visit Codes: [id number] INP/OBS CARE(HIGH) MAGY BARCLAY MD Aug 05, 2025 14:36
[2025-08-05] MEDS: PIPERACILLIN-TAZOB 3.375GM 100 ML IV SCH (14:53)
--- NOTE | 2025-08-05 15:46 | DVH ---
Procedure: XY SMALL BOWEL SERIES-W GASTROGRA Reason for study/Clinical History: SMALL BOWEL OBSTRUCTION Comparison Study: None Technique: Single contrast small bowel series performed. FINDINGS/IMPRESSION: Initial wheel and pinion inspector view of the abdomen and pelvis appears demonstrates no acute process. Contrast is identified within stomach and the small-bowel. It appears to empty into a colostomy bag in the right lower quadrant. No abnormally dilated small bowel. Correlate surgical history for complete colonectomy.
[2025-08-05 16:20] LABS: Mean Corpuscular Hemoglobin 27.6 pg (28.0-32.0)
[2025-08-05 16:23] LABS: Hematocrit 34.5 % (36.0-46.0); Hemoglobin 10.6 g/dL (12.2-16.2); Mean Corpuscular Volume 89.7 fL (80.0-100.0)
[2025-08-05 16:27] LABS: Potassium 4.2 mmol/L (3.5-5.1); Sodium 139 mmol/L (136-145)
[2025-08-05 16:28] LABS: Anion Gap 13 (5-15)
[2025-08-05 16:33] LABS: BUN/Creatinine Ratio 14.3 (10.0-20.0); Glucose 96 mg/dL (74-106)
[2025-08-05 16:42] LABS: Blood Urea Nitrogen 25 mg/dL (9-23); Calcium 7.7 mg/dL (8.7-10.4); Carbon Dioxide 11 mmol/L (20-31); Chloride 115 mmol/L (98-107)
[2025-08-05 16:50] LABS: Anisocytosis Slight; Macrocytosis Slight; Total Cells Counted 100.0 (100)
[2025-08-05 16:51] LABS: Polychromasia Slight
[2025-08-05] MEDS: HYDROcodone-ACET 5/325MG TAB PO PRN (23:48)
[2025-08-06] VITALS (89 sets, daily range): BP systolic 77–117; BP diastolic 42–89; PULSE 71–109; RESP 12–35; TEMP 97.5–99; O2SAT 88–100
[2025-08-06 03:30] LABS: Hematocrit 34.0 % (36.0-46.0); Hemoglobin 10.9 g/dL (12.2-16.2); Mean Corpuscular Hemoglobin 28.2 pg (28.0-32.0); Mean Corpuscular Volume 87.7 fL (80.0-100.0)
[2025-08-06 06:45] LABS: Smudge Cells 7 /100 WBC; Total Cells Counted 100.0 (100)
--- NOTE | 2025-08-06 07:41 | DVHPN2 ---
Progress Note Date Seen: Aug 06, 2025 Medical Necessity Reason Pt with a Central, PICC or Fol: No Objective vital signs Vital Sign Date Time Temp Pulse Resp B/P (MAP) Pulse Ox O2 Delivery O2 Flow Rate FiO2 08/06/25 07:15 99 17 116/89 (98) 08/06/25 06:30 96 08/06/25 06:00 Nasal Cannula* 2 28 08/06/25 00:00 99.0 99.0 Total Intake and Output 08/05/25 08/05/25 08/06/25 15:00 23:00 07:00 Intake Total 1277.51 ml 1410.0 ml 347.5 ml Output Total 2400 ml 500 ml Balance 1277.51 ml -990.0 ml -152.5 ml medications Current Medications Medications Dose Ordered Sig/Sherlyn Route Start Time Stop Time Status Last Admin Dose Admin Pantoprazole Sodium 40 mg DAILY IV 08/04/25 10:00 08/05/25 10:22 40 MG Sodium Chloride 10 ml Q8HR IV 08/03/25 22:00 08/06/25 05:52 10 ML Ondansetron HCl 4 mg Q4HP PRN IV 08/03/25 22:00 Docusate Sodium 100 mg BIDPRN PRN PO 08/03/25 22:00 Enoxaparin Sodium 40 mg DAILY SC 08/04/25 10:00 08/05/25 10:23 40 MG Acetaminophen 650 mg Q6HP PRN PO 08/03/25 22:00 Nitroglycerin 0.4 mg Q5MINP PRN SL 08/04/25 00:00 Morphine Sulfate 2 mg Q30M PRN IV 08/04/25 00:00 Labetalol HCl 10 mg Q2HPRN PRN IV 08/04/25 00:15 Hydromorphone HCl 0.5 mg Q4HPRN PRN IV 08/04/25 00:45 08/06/25 04:05 0.5 MG Midodrine 10 mg TID@0600,1200,1800 PO 08/04/25 06:00 08/06/25 05:52 10 MG Potassium Chloride/Dextrose/ Sod Cl 1,000 ml @ 120 mls/hr Q8H20M IV 08/04/25 18:30 08/05/25 23:53 120 MLS/HR Norepinephrine Bitartrate 250 ml @ 3.75 mls/hr Q24H IV 08/04/25 19:45 08/06/25 05:52 22.5 MLS/HR Piperacillin Sod/ Tazobactam Sod 100 ml @ 25 mls/hr Q8HR IV 08/05/25 14:00 08/05/25 21:35 25 MLS/HR Vancomycin HCl 0 ml @ 0 mls/hr UD IV 08/05/25 10:00 Vancomycin HCl 100 ml @ 200 mls/hr Q24H IV 08/06/25 13:00 Acetaminophen/ Hydrocodone Bitart 1 tab Q4HP PRN PO 08/05/25 23:45 08/05/25 23:48 1 TAB laboratory and microbiology Laboratory Tests 08/06/25 03:12 08/05/25 16:15 Test 08/05/25 16:15 Range/Units Serum Glucose 96 74-106 mg/dL Problem List/Assessment/Plan Problem List/Assessment/Plan 08/06/25 X RAY WITHOUT EVIDENCE OF BOWEL OBSTRUCTION, VOLUMINOUS STOMA OUTPUT SINCE GASTROGRAFIN, NO INDICATION FOR SURGICAL INTERVENTION, WILL SIGN OFF, PLEASE RECALL IF NEEDED Plan discussed with: Other JOSEFINA BRANDON MD Aug 06, 2025 07:41
[2025-08-06 08:24] LABS: Potassium 4.2 mmol/L (3.5-5.1); Sodium 140 mmol/L (136-145)
[2025-08-06 08:25] LABS: Anion Gap 12 (5-15)
[2025-08-06 08:27] LABS: Calcium 7.2 mg/dL (8.7-10.4); Carbon Dioxide 12 mmol/L (20-31); Chloride 116 mmol/L (98-107)
[2025-08-06 08:30] LABS: BUN/Creatinine Ratio 19.6 (10.0-20.0)
[2025-08-06 08:31] LABS: Blood Urea Nitrogen 30 mg/dL (9-23); Glucose 109 mg/dL (74-106)
[2025-08-06 08:32] LABS: INR 1.28 (0.9-1.15); Partial Thromboplastin Time 39.6 SEC (24.5-34.5); Prothrombin Time 13.2 sec (9.3-11.8)
[2025-08-06] MEDS: LIDOCAINE 1% (LOCAL ANESTH.) PF 5ml SDV ID ONE (11:20)
[2025-08-06] MEDS: VANCOMYCIN 750MG KIT 100 ML IV SCH (13:08)
[2025-08-06] MEDS: SODIUM CHLOR 0.9% PF (SALINE LOCK) 10ML VIAL/SYR IV SCH (21:44)
--- NOTE | 2025-08-06 22:04 | DVHPN2 ---
Subjective The patient is seen and examined at bedside. Complain of rectal spasm. The patient had colostomy tube. Reviewed: Care Plan, H&P, Labs, Medications, Previous Orders, Radiology Changes from previous H/P or p: No Changes Eyes: No Pain, No Vision change, No Conjunctivae inflammation, No Eyelid inflammation, No Other, No Redness ENT: No Ear pain, No Ear discharge, No Nose pain, No Nose discharge, No Nose congestion, No Mouth pain, No Mouth swelling, No Throat pain, No Throat swelling, No Other Cardiovascular: No Chest Pain, No Palpitations, No Orthopnea, No Paroxysmal Noc. Dyspnea, No Edema, No Lt Headedness, No Other Respiratory: No Cough, No Dry, No Shortness of breath, No SOB with excertion, No Wheezing, No Hemoptysis, No Pleuritic Pain, No Sputum, No Other Gastrointestinal: Nausea, Vomiting Genitourinary: No Dysuria, No Frequency, No Incontinence, No Hematuria, No Retention, No Other Musculoskeletal: No other, No neck pain, No shoulder pain, No arm pain, No back pain, No hand pain, No leg pain, No foot pain Skin: No Rash, No Lesions, No Jaundice, No Bruising, No Other Objective Vitals Vital Signs Date Time Temp Pulse Resp B/P (MAP) Pulse Ox O2 Delivery O2 Flow Rate FiO2 08/06/25 21:55 83 20 89/55 08/06/25 20:45 98 08/06/25 20:00 98.2 98.2 08/06/25 18:00 Room Air* 0 21 Intake/Output Intake and Output 08/06/25 07:00 Intake Total 4082.51 ml Output Total 2900 ml Balance 1182.51 ml Intake Oral 300 ml IV Total 3782.51 ml Output Stool Total 2600 ml Gastric Drainage Total 300 ml # Voids 8 General Appearance: Alert, Cooperative, No acute distress HEENT: Atraumatic, PERRLA, EOMI, Mucous membr. moist/pink Neck: Supple Lungs: Clear to auscultation, Normal air movement Cardiovascular: Regular rate, Normal S1, Normal S2, No murmurs, Gallops, Rubs Abdomen: Normal bowel sounds, Soft, No tenderness Neuro: Cranial nerves 3-12 NL Psych/Mental Status: Mental status NL Medications Current Medications Medications Dose Ordered Sig/Sherlyn Route Start Time Stop Time Status Last Admin Dose Admin Pantoprazole Sodium 40 mg DAILY IV 08/04/25 10:00 08/06/25 10:59 40 MG Ondansetron HCl 4 mg Q4HP PRN IV 08/03/25 22:00 Docusate Sodium 100 mg BIDPRN PRN PO 08/03/25 22:00 Enoxaparin Sodium 40 mg DAILY SC 08/04/25 10:00 08/06/25 11:00 40 MG Acetaminophen 650 mg Q6HP PRN PO 08/03/25 22:00 Nitroglycerin 0.4 mg Q5MINP PRN SL 08/04/25 00:00 Morphine Sulfate 2 mg Q30M PRN IV 08/04/25 00:00 Labetalol HCl 10 mg Q2HPRN PRN IV 08/04/25 00:15 Hydromorphone HCl 0.5 mg Q4HPRN PRN IV 08/04/25 00:45 08/06/25 21:55 0.5 MG Midodrine 10 mg TID@0600,1200,1800 PO 08/04/25 06:00 08/06/25 17:46 10 MG Potassium Chloride/Dextrose/ Sod Cl 1,000 ml @ 120 mls/hr Q8H20M IV 08/04/25 18:30 08/06/25 21:43 120 MLS/HR Norepinephrine Bitartrate 250 ml @ 3.75 mls/hr Q24H IV 08/04/25 19:45 08/06/25 05:52 22.5 MLS/HR Piperacillin Sod/ Tazobactam Sod 100 ml @ 25 mls/hr Q8HR IV 08/05/25 14:00 08/06/25 21:43 25 MLS/HR Vancomycin HCl 0 ml @ 0 mls/hr UD IV 08/05/25 10:00 Vancomycin HCl 100 ml @ 200 mls/hr Q24H IV 08/06/25 13:00 08/06/25 13:08 200 MLS/HR Acetaminophen/ Hydrocodone Bitart 1 tab Q4HP PRN PO 08/05/25 23:45 08/06/25 19:01 1 TAB Sodium Chloride 10 ml QSHIFT@10,22 IV 08/06/25 22:00 08/06/25 21:44 10 ML Laboratory Results Laboratory Tests 08/06/25 03:12 08/06/25 07:50 Chemistry Test 08/06/25 07:50 Calcium Level 7.2 mg/dL (8.7-10.4) L Coagulation Test 08/06/25 07:50 Prothrombin Time 13.2 sec (9.3-11.8) H Prothrombin Time INR 1.28 (0.9-1.15) H Activated Partial Thromboplast Time 39.6 SEC (24.5-34.5) H Microbiology Microbiology Date/Time Source Procedure Growth Status 08/04/25 21:00 Nose MRSA Screen - Final Complete 08/03/25 19:05 Blood Blood Culture - Preliminary NO GROWTH AFTER 72 HOURS OF INCUBATION. Resulted Labs and/or images reviewed: Labs reviewed by me Assessment/Plan Assessment/Plan Small-bowel obstruction Thrombocytosis Metastatic disease Hypertensive urgency, now become hypotension Leukocytosis, unspecified Generalized weakness Intractable nausea and vomiting Pneumonia, unspecified organism Sepsis Plan Continuing current management. status post fluid resuscitation, bolus with normal saline. Now required Vasopressor medication Patient has been upgrade to ICU for close follow up. Continuing with IV antibiotic. I d/c Rocephin. I will put patient on Vancomycin IV pharmacy to dose and Zosyn 3.375gm IV q 8hours We will follow up with culture. Surgery input appreciate. S/p Gastrografin. The test showed no bowel obstruction. Discussed with the patient regarding to rectal spasm. Explained to the patient that is normal in his happen all the time with a muscle contract. We will continuing to monitor. PICC line placement today for vasopressor. Continuing to try to wean the patient off Levophed if possible Appreciate surgeon input. This medical document was created using an electronic medical record system with [employer] system. Although this document has been carefully reviewed, there may still be some phonetic and typographical errors. These areas are purely typographical due to imperfections of the software programs, and do not reflect any compromise in the patient's medical care. This medical document was created using an electronic medical record system with [employer] system. Although this document has been carefully reviewed, there may still be some phonetic and typographical errors. These areas are purely typographical due to imperfections of the software programs, and do not reflect any compromise in the patient's medical care. Plan discussed with: Patient My Orders Orders - MAGY BARCLAY MD Procedure Category Date Status Time Nursing Protocol Picc DOLORES 08/06/25 In Process 10:52 Change Dressing Prn DOLORES 08/06/25 In Process 10:52 Sodium Chloride Lock PHA 08/06/25 In Process (Saline Lock Ns) 22:00 Do Not Use Picc For [facility] 08/06/25 In Process Blood Cult 10:52 May Draw Blood From [facility] 08/06/25 In Process Picc 10:52 Ok To Use Picc [facility] 08/06/25 In Process 10:52 Change Picc Dressing [facility] 08/06/25 In Process Q7 Days 10:52 Complete Blood Count LAB 08/07/25 Verified 04:00 Creatinine LAB 08/07/25 Verified 04:00 Basic Metabolic Panel LAB 08/07/25 Verified 04:00 Date of Service: Aug 06, 2025 Billing Provider: MAGY BARCLAY MD Common Visit Codes: [id number] INP/OBS CARE(HIGH) MAGY BARCLAY MD Aug 06, 2025 22:04
[2025-08-07] VITALS (97 sets, daily range): BP systolic 78–127; BP diastolic 47–89; PULSE 59–106; RESP 13–32; TEMP 97.6–98.4; O2SAT 76–100
[2025-08-07 04:22] LABS: Hematocrit 30.3 % (36.0-46.0); Hemoglobin 9.6 g/dL (12.2-16.2); Mean Corpuscular Hemoglobin 27.4 pg (28.0-32.0); Mean Corpuscular Volume 86.9 fL (80.0-100.0); Nucleated Red Blood Cells % 0.1 %
[2025-08-07 04:37] LABS: Anion Gap 12 (5-15); Potassium 4.1 mmol/L (3.5-5.1); Sodium 137 mmol/L (136-145)
[2025-08-07 04:43] LABS: BUN/Creatinine Ratio 18.8 (10.0-20.0); Blood Urea Nitrogen 22 mg/dL (9-23); Glucose 77 mg/dL (74-106)
[2025-08-07 05:07] LABS: Calcium 7.7 mg/dL (8.7-10.4); Carbon Dioxide 11 mmol/L (20-31); Chloride 114 mmol/L (98-107)
--- NOTE | 2025-08-07 11:09 | DVHPN2 ---
Subjective The patient is seen and examined at bedside. still have rectal spasm. The patient had colostomy tube. Off levophed. Agree to take midorine today. BP still soft 90/50 Reviewed: Care Plan, H&P, Labs, Medications, Previous Orders, Radiology Changes from previous H/P or p: No Changes Eyes: No Pain, No Vision change, No Conjunctivae inflammation, No Eyelid inflammation, No Other, No Redness ENT: No Ear pain, No Ear discharge, No Nose pain, No Nose discharge, No Nose congestion, No Mouth pain, No Mouth swelling, No Throat pain, No Throat swelling, No Other Cardiovascular: No Chest Pain, No Palpitations, No Orthopnea, No Paroxysmal Noc. Dyspnea, No Edema, No Lt Headedness, No Other Respiratory: No Cough, No Dry, No Shortness of breath, No SOB with excertion, No Wheezing, No Hemoptysis, No Pleuritic Pain, No Sputum, No Other Gastrointestinal: Nausea, Vomiting Genitourinary: No Dysuria, No Frequency, No Incontinence, No Hematuria, No Retention, No Other Musculoskeletal: No other, No neck pain, No shoulder pain, No arm pain, No back pain, No hand pain, No leg pain, No foot pain Skin: No Rash, No Lesions, No Jaundice, No Bruising, No Other Objective Vitals Vital Signs Date Time Temp Pulse Resp B/P (MAP) Pulse Ox O2 Delivery O2 Flow Rate FiO2 08/07/25 09:45 85 18 92/63 08/07/25 07:00 98 08/07/25 06:00 Room Air* 0 21 08/07/25 04:00 98.2 98.2 Intake/Output Intake and Output 08/07/25 07:00 Intake Total 4065.00 ml Output Total 850 ml Balance 3215.00 ml Intake Oral 920 ml IV Total 3145.00 ml Output Stool Total 850 ml # Voids 8 General Appearance: Alert, Cooperative, No acute distress HEENT: Atraumatic, PERRLA, EOMI, Mucous membr. moist/pink Neck: Supple Lungs: Clear to auscultation, Normal air movement Cardiovascular: Regular rate, Normal S1, Normal S2, No murmurs, Gallops, Rubs Abdomen: Normal bowel sounds, Soft, No tenderness Neuro: Cranial nerves 3-12 NL Psych/Mental Status: Mental status NL Medications Current Medications Medications Dose Ordered Sig/Sherlyn Route Start Time Stop Time Status Last Admin Dose Admin Pantoprazole Sodium 40 mg DAILY IV 08/04/25 10:00 08/07/25 09:46 40 MG Ondansetron HCl 4 mg Q4HP PRN IV 08/03/25 22:00 Docusate Sodium 100 mg BIDPRN PRN PO 08/03/25 22:00 Enoxaparin Sodium 40 mg DAILY SC 08/04/25 10:00 08/07/25 09:47 40 MG Acetaminophen 650 mg Q6HP PRN PO 08/03/25 22:00 Nitroglycerin 0.4 mg Q5MINP PRN SL 08/04/25 00:00 Morphine Sulfate 2 mg Q30M PRN IV 08/04/25 00:00 Labetalol HCl 10 mg Q2HPRN PRN IV 08/04/25 00:15 Hydromorphone HCl 0.5 mg Q4HPRN PRN IV 08/04/25 00:45 08/07/25 09:45 0.5 MG Midodrine 10 mg TID@0600,1200,1800 PO 08/04/25 06:00 08/07/25 11:07 10 MG Potassium Chloride/Dextrose/ Sod Cl 1,000 ml @ 120 mls/hr Q8H20M IV 08/04/25 18:30 08/07/25 06:52 120 MLS/HR Norepinephrine Bitartrate 250 ml @ 3.75 mls/hr Q24H IV 08/04/25 19:45 08/07/25 03:32 7.5 MLS/HR Piperacillin Sod/ Tazobactam Sod 100 ml @ 25 mls/hr Q8HR IV 08/05/25 14:00 08/07/25 05:53 25 MLS/HR Vancomycin HCl 0 ml @ 0 mls/hr UD IV 08/05/25 10:00 Vancomycin HCl 100 ml @ 200 mls/hr Q24H IV 08/06/25 13:00 08/06/25 13:08 200 MLS/HR Acetaminophen/ Hydrocodone Bitart 1 tab Q4HP PRN PO 08/05/25 23:45 08/07/25 06:53 1 TAB Sodium Chloride 10 ml QSHIFT@,22 IV 08/06/25 22:00 08/07/25 09:47 10 ML Laboratory Results Laboratory Tests 08/07/25 03:30 Chemistry Test 08/07/25 03:30 Calcium Level 7.7 mg/dL (8.7-10.4) L Microbiology Microbiology Date/Time Source Procedure Growth Status 08/04/25 21:00 Nose MRSA Screen - Final Complete 08/03/25 19:05 Blood Blood Culture - Preliminary NO GROWTH AFTER 72 HOURS OF INCUBATION. Resulted Labs and/or images reviewed: Labs reviewed by me Assessment/Plan Assessment/Plan Small-bowel obstruction Thrombocytosis Metastatic disease Hypertensive urgency, now become hypotension Leukocytosis, unspecified Generalized weakness Intractable nausea and vomiting Pneumonia, unspecified organism Sepsis Plan Continuing current management. status post fluid resuscitation, bolus with normal saline. Now off Vasopressor medication Patient has been upgrade to ICU for close follow up. Anticipate to down grade when BP improved. Continuing with IV antibiotic. Continue on Vancomycin IV pharmacy to dose and Zosyn 3.375gm IV q 8hours We will follow up with culture. Surgery input appreciate. S/p Gastrografin. The test showed no bowel obstruction. Discussed with the patient regarding to rectal spasm. Explained to the patient that is normal in his happen all the time with a muscle contract. Will give flexeril 10mg bid to see if it improved. This medical document was created using an electronic medical record system with [employer] dictation system. Although this document has been carefully reviewed, there may still be some phonetic and typographical errors. These areas are purely typographical due to imperfections of the software programs, and do not reflect any compromise in the patient's medical care. This medical document was created using an electronic medical record system with [employer] dictation system. Although this document has been carefully reviewed, there may still be some phonetic and typographical errors. These areas are purely typographical due to imperfections of the software programs, and do not reflect any compromise in the patient's medical care. Plan discussed with: Patient Date of Service: Aug 07, 2025 Billing Provider: MAGY BARCLAY MD Common Visit Codes: [id number] INP/OBS CARE(HIGH) AMGY BARCLAY MD Aug 07, 2025 11:09
[2025-08-07] MEDS: CYCLOBENZAPRINE HCL 10 MG TAB PO SCH (22:22)
[2025-08-08] VITALS (77 sets, daily range): BP systolic 79–117; BP diastolic 42–84; PULSE 65–107; RESP 13–28; TEMP 97.8–98.3; O2SAT 91–100
[2025-08-08 06:20] LABS: Hematocrit 30.5 % (36.0-46.0); Hemoglobin 9.7 g/dL (12.2-16.2); Mean Corpuscular Hemoglobin 27.3 pg (28.0-32.0); Mean Corpuscular Volume 86.0 fL (80.0-100.0); Nucleated Red Blood Cells % 0.1 %
[2025-08-08 06:36] LABS: Anion Gap 12 (5-15); Potassium 4.2 mmol/L (3.5-5.1)
[2025-08-08 06:37] LABS: Carbon Dioxide 11 mmol/L (20-31); Chloride 113 mmol/L (98-107); Sodium 136 mmol/L (136-145)
[2025-08-08 06:38] LABS: Calcium 8.0 mg/dL (8.7-10.4)
[2025-08-08 06:42] LABS: BUN/Creatinine Ratio 13.2 (10.0-20.0); Blood Urea Nitrogen 14 mg/dL (9-23); Glucose 74 mg/dL (74-106)
--- NOTE | 2025-08-08 11:42 | DVHPN2 ---
Subjective The patient is seen and examined at bedside. still have rectal spasm. The patient had colostomy tube. Off levophed. Agree to take midorine today. BP still soft 90/50 Reviewed: Care Plan, H&P, Labs, Medications, Previous Orders, Radiology Changes from previous H/P or p: No Changes Eyes: No Pain, No Vision change, No Conjunctivae inflammation, No Eyelid inflammation, No Other, No Redness ENT: No Ear pain, No Ear discharge, No Nose pain, No Nose discharge, No Nose congestion, No Mouth pain, No Mouth swelling, No Throat pain, No Throat swelling, No Other Cardiovascular: No Chest Pain, No Palpitations, No Orthopnea, No Paroxysmal Noc. Dyspnea, No Edema, No Lt Headedness, No Other Respiratory: No Cough, No Dry, No Shortness of breath, No SOB with excertion, No Wheezing, No Hemoptysis, No Pleuritic Pain, No Sputum, No Other Gastrointestinal: Nausea, Vomiting Genitourinary: No Dysuria, No Frequency, No Incontinence, No Hematuria, No Retention, No Other Musculoskeletal: No other, No neck pain, No shoulder pain, No arm pain, No back pain, No hand pain, No leg pain, No foot pain Skin: No Rash, No Lesions, No Jaundice, No Bruising, No Other Objective Vitals Vital Signs Date Time Temp Pulse Resp B/P (MAP) Pulse Ox O2 Delivery O2 Flow Rate FiO2 08/08/25 11:03 85 18 98/56 08/08/25 11:00 97 08/08/25 10:00 Room Air* 0 21 08/08/25 08:00 98.1 98.1 Intake/Output Intake and Output 08/08/25 07:00 Intake Total 4127.50 ml Output Total 985 ml Balance 3142.50 ml Intake Oral 1260 ml IV Total 2867.50 ml Output Stool Total 985 ml # Voids 8 General Appearance: Alert, Cooperative, No acute distress HEENT: Atraumatic, PERRLA, EOMI, Mucous membr. moist/pink Neck: Supple Lungs: Clear to auscultation, Normal air movement Cardiovascular: Regular rate, Normal S1, Normal S2, No murmurs, Gallops, Rubs Abdomen: Normal bowel sounds, Soft, No tenderness Neuro: Cranial nerves 3-12 NL Psych/Mental Status: Mental status NL Medications Current Medications Medications Dose Ordered Sig/Sherlyn Route Start Time Stop Time Status Last Admin Dose Admin Pantoprazole Sodium 40 mg DAILY IV 08/04/25 10:00 08/07/25 09:46 40 MG Ondansetron HCl 4 mg Q4HP PRN IV 08/03/25 22:00 Docusate Sodium 100 mg BIDPRN PRN PO 08/03/25 22:00 Enoxaparin Sodium 40 mg DAILY SC 08/04/25 10:00 08/07/25 09:47 40 MG Acetaminophen 650 mg Q6HP PRN PO 08/03/25 22:00 Nitroglycerin 0.4 mg Q5MINP PRN SL 08/04/25 00:00 Morphine Sulfate 2 mg Q30M PRN IV 08/04/25 00:00 Labetalol HCl 10 mg Q2HPRN PRN IV 08/04/25 00:15 Hydromorphone HCl 0.5 mg Q4HPRN PRN IV 08/04/25 00:45 08/08/25 10:33 0.5 MG Midodrine 10 mg TID@0600,1200,1800 PO 08/04/25 06:00 08/08/25 05:27 10 MG Potassium Chloride/Dextrose/ Sod Cl 1,000 ml @ 120 mls/hr Q8H20M IV 08/04/25 18:30 08/08/25 00:40 120 MLS/HR Norepinephrine Bitartrate 250 ml @ 3.75 mls/hr Q24H IV 08/04/25 19:45 08/07/25 03:32 7.5 MLS/HR Piperacillin Sod/ Tazobactam Sod 100 ml @ 25 mls/hr Q8HR IV 08/05/25 14:00 08/08/25 05:27 25 MLS/HR Vancomycin HCl 0 ml @ 0 mls/hr UD IV 08/05/25 10:00 Vancomycin HCl 100 ml @ 200 mls/hr Q24H IV 08/06/25 13:00 08/07/25 12:11 200 MLS/HR Acetaminophen/ Hydrocodone Bitart 1 tab Q4HP PRN PO 08/05/25 23:45 08/08/25 03:55 1 TAB Sodium Chloride 10 ml QSHIFT@ IV 08/06/25 22:00 08/08/25 09:49 10 ML Cyclobenzaprine HCl 10 mg BID PO 08/07/25 22:00 08/08/25 09:47 10 MG Laboratory Results Laboratory Tests 08/08/25 05:30 Chemistry Test 08/08/25 05:30 Calcium Level 8.0 mg/dL (8.7-10.4) L Microbiology Microbiology Date/Time Source Procedure Growth Status 08/04/25 21:00 Nose MRSA Screen - Final Complete 08/03/25 19:05 Blood Blood Culture - Preliminary NO GROWTH AFTER 72 HOURS OF INCUBATION. Resulted Labs and/or images reviewed: Labs reviewed by me Assessment/Plan Assessment/Plan Small-bowel obstruction Thrombocytosis Metastatic disease Hypertensive urgency, now become hypotension Leukocytosis, unspecified Generalized weakness Intractable nausea and vomiting Pneumonia, unspecified organism Sepsis Plan Continuing current management. status post fluid resuscitation, bolus with normal saline. Now off Vasopressor medication Patient has been upgrade to ICU for close follow up. Anticipate to down grade when BP improved. Continuing with IV antibiotic. Continue on Vancomycin IV pharmacy to dose and Zosyn 3.375gm IV q 8hours We will follow up with culture. Surgery input appreciate. S/p Gastrografin. The test showed no bowel obstruction. Discussed with the patient regarding to rectal spasm. Explained to the patient that is normal in his happen all the time with a muscle contract. Continue flexeril 10mg bid to see if it improved. Down grade to telemetry This medical document was created using an electronic medical record system with [employer] system. Although this document has been carefully reviewed, there may still be some phonetic and typographical errors. These areas are purely typographical due to imperfections of the software programs, and do not reflect any compromise in the patient's medical care. This medical document was created using an electronic medical record system with [employer] dictation system. Although this document has been carefully reviewed, there may still be some phonetic and typographical errors. These areas are purely typographical due to imperfections of the software programs, and do not reflect any compromise in the patient's medical care. Plan discussed with: Patient My Orders Orders - MAGY BARCLAY MD Procedure Category Date Status Time Cyclobenzaprine PHA 08/07/25 In Process Tablet (Flexeril 22:00 Transfer Orders XFER 08/08/25 Transmitted 10:17 Date of Service: Aug 08, 2025 Billing Provider: MAGY BARCLAY MD Common Visit Codes: [id number] INP/OBS CARE(HIGH) MAGY BARCLAY MD Aug 08, 2025 11:42
[2025-08-09] VITALS (9 sets, daily range): BP systolic 102–119; BP diastolic 77–90; PULSE 50–113; RESP 16–20; TEMP 96.1–98.8; O2SAT 96–100
[2025-08-09 07:33] LABS: Anion Gap 12 (5-15)
[2025-08-09 07:35] LABS: Calcium 7.7 mg/dL (8.7-10.4); Carbon Dioxide 12 mmol/L (20-31); Chloride 109 mmol/L (98-107); Potassium 5.2 mmol/L (3.5-5.1); Sodium 133 mmol/L (136-145)
[2025-08-09 07:39] LABS: BUN/Creatinine Ratio 14.8 (10.0-20.0); Blood Urea Nitrogen 13 mg/dL (9-23)
[2025-08-09 07:46] LABS: Hematocrit 31.6 % (36.0-46.0); Hemoglobin 10.0 g/dL (12.2-16.2); Mean Corpuscular Hemoglobin 27.3 pg (28.0-32.0); Mean Corpuscular Volume 86.6 fL (80.0-100.0); Nucleated Red Blood Cells % 0.1 %
[2025-08-09 07:47] LABS: Glucose 212 mg/dL (74-106)
--- NOTE | 2025-08-09 10:01 | DVHPN2 ---
Subjective The patient is seen and examined at bedside. Rectal spasm improved. Reviewed: Care Plan, H&P, Labs, Medications, Previous Orders, Radiology Changes from previous H/P or p: No Changes Eyes: No Pain, No Vision change, No Conjunctivae inflammation, No Eyelid inflammation, No Other, No Redness ENT: No Ear pain, No Ear discharge, No Nose pain, No Nose discharge, No Nose congestion, No Mouth pain, No Mouth swelling, No Throat pain, No Throat swelling, No Other Cardiovascular: No Chest Pain, No Palpitations, No Orthopnea, No Paroxysmal Noc. Dyspnea, No Edema, No Lt Headedness, No Other Respiratory: No Cough, No Dry, No Shortness of breath, No SOB with excertion, No Wheezing, No Hemoptysis, No Pleuritic Pain, No Sputum, No Other Gastrointestinal: Nausea, Vomiting Genitourinary: No Dysuria, No Frequency, No Incontinence, No Hematuria, No Retention, No Other Musculoskeletal: No other, No neck pain, No shoulder pain, No arm pain, No back pain, No hand pain, No leg pain, No foot pain Skin: No Rash, No Lesions, No Jaundice, No Bruising, No Other Objective Vitals Vital Signs Date Time Temp Pulse Resp B/P (MAP) Pulse Ox O2 Delivery O2 Flow Rate FiO2 08/09/25 08:38 98.8 50 17 114/77 (89) 98 98.8 08/08/25 21:57 Room Air* 0 21 Intake/Output Intake and Output 08/09/25 07:00 Intake Total 2735 ml Output Total 1000 ml Balance 1735 ml Intake Oral 560 ml IV Total 2175 ml Output Stool Total 1000 ml # Voids 7 General Appearance: Alert, Cooperative, No acute distress HEENT: Atraumatic, PERRLA, EOMI, Mucous membr. moist/pink Neck: Supple Lungs: Clear to auscultation, Normal air movement Cardiovascular: Regular rate, Normal S1, Normal S2, No murmurs, Gallops, Rubs Abdomen: Normal bowel sounds, Soft, No tenderness Neuro: Cranial nerves 3-12 NL Psych/Mental Status: Mental status NL Medications Current Medications Medications Dose Ordered Sig/Sherlyn Route Start Time Stop Time Status Last Admin Dose Admin Pantoprazole Sodium 40 mg DAILY IV 08/04/25 10:00 08/07/25 09:46 40 MG Ondansetron HCl 4 mg Q4HP PRN IV 08/03/25 22:00 Docusate Sodium 100 mg BIDPRN PRN PO 08/03/25 22:00 Enoxaparin Sodium 40 mg DAILY SC 08/04/25 10:00 08/07/25 09:47 40 MG Acetaminophen 650 mg Q6HP PRN PO 08/03/25 22:00 Nitroglycerin 0.4 mg Q5MINP PRN SL 08/04/25 00:00 Morphine Sulfate 2 mg Q30M PRN IV 08/04/25 00:00 Labetalol HCl 10 mg Q2HPRN PRN IV 08/04/25 00:15 Hydromorphone HCl 0.5 mg Q4HPRN PRN IV 08/04/25 00:45 08/09/25 05:55 0.5 MG Midodrine 10 mg TID@0600,1200,1800 PO 08/04/25 06:00 08/09/25 05:52 10 MG Potassium Chloride/Dextrose/ Sod Cl 1,000 ml @ 120 mls/hr Q8H20M IV 08/04/25 18:30 08/09/25 06:30 120 MLS/HR Piperacillin Sod/ Tazobactam Sod 100 ml @ 25 mls/hr Q8HR IV 08/05/25 14:00 08/09/25 05:53 25 MLS/HR Vancomycin HCl 0 ml @ 0 mls/hr UD IV 08/05/25 10:00 Vancomycin HCl 100 ml @ 200 mls/hr Q24H IV 08/06/25 13:00 08/08/25 12:38 200 MLS/HR Acetaminophen/ Hydrocodone Bitart 1 tab Q4HP PRN PO 08/05/25 23:45 08/08/25 22:47 1 TAB Sodium Chloride 10 ml QSHIFT@10,22 IV 08/06/25 22:00 08/08/25 21:28 10 ML Cyclobenzaprine HCl 10 mg BID PO 08/07/25 22:00 08/08/25 21:28 10 MG Laboratory Results Laboratory Tests 08/09/25 06:00 Chemistry Test 08/09/25 06:00 Calcium Level 7.7 mg/dL (8.7-10.4) L Microbiology Microbiology Date/Time Source Procedure Growth Status 08/04/25 21:00 Nose MRSA Screen - Final Complete 08/03/25 19:05 Blood Blood Culture - Final NO GROWTH AFTER 5 DAYS OF INCUBATION. Complete Labs and/or images reviewed: Labs reviewed by me Assessment/Plan Assessment/Plan Small-bowel obstruction Thrombocytosis Metastatic disease Hypertensive urgency, now become hypotension Leukocytosis, unspecified Generalized weakness Intractable nausea and vomiting Pneumonia, unspecified organism Sepsis Plan Continuing current management. status post fluid resuscitation, bolus with normal saline. Now off Vasopressor medication Patient has been upgrade to ICU for close follow up. Anticipate to down grade when BP improved. Continuing with IV antibiotic. Continue on Vancomycin IV pharmacy to dose and Zosyn 3.375gm IV q 8hours We will follow up with culture. Surgery input appreciate. S/p Gastrografin. The test showed no bowel obstruction. Discussed with the patient regarding to rectal spasm. Explained to the patient that is normal in his happen all the time with a muscle contract. Continue flexeril 10mg bid to see if it improved. Down grade to telemetry Discharge planning. This medical document was created using an electronic medical record system with [employer] dictation system. Although this document has been carefully reviewed, there may still be some phonetic and typographical errors. These areas are purely typographical due to imperfections of the software programs, and do not reflect any compromise in the patient's medical care. This medical document was created using an electronic medical record system with [employer] dictation system. Although this document has been carefully reviewed, there may still be some phonetic and typographical errors. These areas are purely typographical due to imperfections of the software programs, and do not reflect any compromise in the patient's medical care. Plan discussed with: Patient My Orders Orders - MAGY BARCLAY MD Procedure Category Date Status Time Transfer Orders XFER 08/08/25 Transmitted 10:17 * [employer]ting [employer] Operator CONS 08/08/25 Transmitted Consult Date of Service: Aug 09, 2025 Billing Provider: MAGY BARCLAY MD Common Visit Codes: [id number] INP/OBS CARE(HIGH) MAGY BARCLAY MD Aug 09, 2025 10:01
--- NOTE | 2025-08-09 10:42 | MEDREC ---
[facility] ASP Intervention Section I [facility] ASP Intervention: Review courses of therapy (PLEASE CONSIDER D/C VANCOMYCIN - NARES SCREENING FOR MRSA HAS A HIGH SPECIFICITY AND NEGATIVE PREDICTIVE VALUE FOR RULING OUT MRSA PNEUMONIA, PARTICULARLY IN CASES OF CAP BASED ON THE NEGATIVE PREDICITVE VALUE AND THE MRSA NARES NEGATIVE PLEASE CONSIDER D/C V ANCOMYCIN. ) CORTNEY PONCE PHARMACIST Aug 09, 2025 10:42
[2025-08-09] MEDS: VANCOMYCIN 1GM/250ML KIT 250 ML IV SCH (16:01)
[2025-08-10] VITALS (9 sets, daily range): BP systolic 107–125; BP diastolic 76–86; PULSE 57–104; RESP 17–18; TEMP 96.7–98.2; O2SAT 96–99
[2025-08-10 09:23] LABS: Hematocrit 31.2 % (36.0-46.0); Hemoglobin 10.0 g/dL (12.2-16.2); Mean Corpuscular Hemoglobin 27.6 pg (28.0-32.0); Mean Corpuscular Volume 86.1 fL (80.0-100.0); Nucleated Red Blood Cells % 0.0 %
[2025-08-10 10:57] LABS: Potassium 4.6 mmol/L (3.5-5.1)
[2025-08-10 10:58] LABS: Anion Gap 12 (5-15); Calcium 8.2 mg/dL (8.7-10.4); Carbon Dioxide 13 mmol/L (20-31); Chloride 110 mmol/L (98-107); Sodium 135 mmol/L (136-145)
[2025-08-10 11:04] LABS: BUN/Creatinine Ratio 12.0 (10.0-20.0); Blood Urea Nitrogen 11 mg/dL (9-23)
--- NOTE | 2025-08-10 11:05 | DVHPN2 ---
Subjective The patient is seen and examined at bedside. Rectal spasm improved. Reviewed: Care Plan, H&P, Labs, Medications, Previous Orders, Radiology Changes from previous H/P or p: No Changes Eyes: No Pain, No Vision change, No Conjunctivae inflammation, No Eyelid inflammation, No Other, No Redness ENT: No Ear pain, No Ear discharge, No Nose pain, No Nose discharge, No Nose congestion, No Mouth pain, No Mouth swelling, No Throat pain, No Throat swelling, No Other Cardiovascular: No Chest Pain, No Palpitations, No Orthopnea, No Paroxysmal Noc. Dyspnea, No Edema, No Lt Headedness, No Other Respiratory: No Cough, No Dry, No Shortness of breath, No SOB with excertion, No Wheezing, No Hemoptysis, No Pleuritic Pain, No Sputum, No Other Gastrointestinal: Nausea, Vomiting Genitourinary: No Dysuria, No Frequency, No Incontinence, No Hematuria, No Retention, No Other Musculoskeletal: No other, No neck pain, No shoulder pain, No arm pain, No back pain, No hand pain, No leg pain, No foot pain Skin: No Rash, No Lesions, No Jaundice, No Bruising, No Other Objective Vitals Vital Signs Date Time Temp Pulse Resp B/P (MAP) Pulse Ox O2 Delivery O2 Flow Rate FiO2 08/10/25 06:37 65 16 105/64 08/10/25 04:56 96.7 99 96.7 08/09/25 20:00 Room Air* 0 21 Intake/Output Intake and Output 08/10/25 07:00 Intake Total 1540 ml Output Total 250 ml Balance 1290 ml Intake Oral 1190 ml IV Total 350 ml Output Stool Total 250 ml # Voids 6 General Appearance: Alert, Cooperative, No acute distress HEENT: Atraumatic, PERRLA, EOMI, Mucous membr. moist/pink Neck: Supple Lungs: Clear to auscultation, Normal air movement Cardiovascular: Regular rate, Normal S1, Normal S2, No murmurs, Gallops, Rubs Abdomen: Normal bowel sounds, Soft, No tenderness Neuro: Cranial nerves 3-12 NL Psych/Mental Status: Mental status NL Medications Current Medications Medications Dose Ordered Sig/Sherlyn Route Start Time Stop Time Status Last Admin Dose Admin Pantoprazole Sodium 40 mg DAILY IV 08/04/25 10:00 08/10/25 10:07 40 MG Ondansetron HCl 4 mg Q4HP PRN IV 08/03/25 22:00 Docusate Sodium 100 mg BIDPRN PRN PO 08/03/25 22:00 Enoxaparin Sodium 40 mg DAILY SC 08/04/25 10:00 08/10/25 10:07 40 MG Acetaminophen 650 mg Q6HP PRN PO 08/03/25 22:00 Nitroglycerin 0.4 mg Q5MINP PRN SL 08/04/25 00:00 Morphine Sulfate 2 mg Q30M PRN IV 08/04/25 00:00 Labetalol HCl 10 mg Q2HPRN PRN IV 08/04/25 00:15 Hydromorphone HCl 0.5 mg Q4HPRN PRN IV 08/04/25 00:45 08/10/25 06:07 0.5 MG Midodrine 10 mg TID@0600,1200,1800 PO 08/04/25 06:00 08/10/25 06:06 10 MG Potassium Chloride/Dextrose/ Sod Cl 1,000 ml @ 120 mls/hr Q8H20M IV 08/04/25 18:30 08/10/25 03:05 120 MLS/HR Piperacillin Sod/ Tazobactam Sod 100 ml @ 25 mls/hr Q8HR IV 08/05/25 14:00 08/10/25 06:07 25 MLS/HR Vancomycin HCl 0 ml @ 0 mls/hr UD IV 08/05/25 10:00 Acetaminophen/ Hydrocodone Bitart 1 tab Q4HP PRN PO 08/05/25 23:45 08/10/25 02:55 1 TAB Sodium Chloride 10 ml QSHIFT@,22 IV 08/06/25 22:00 08/10/25 10:11 10 ML Cyclobenzaprine HCl 10 mg BID PO 08/07/25 22:00 08/10/25 10:07 10 MG Vancomycin HCl 250 ml @ 250 mls/hr Q12H IV 08/09/25 15:00 08/10/25 03:05 250 MLS/HR Laboratory Results Laboratory Tests 08/10/25 08:49 Chemistry Test 08/10/25 08:49 Calcium Level 8.2 mg/dL (8.7-10.4) L Microbiology Microbiology Date/Time Source Procedure Growth Status 08/04/25 21:00 Nose MRSA Screen - Final Complete 08/03/25 19:05 Blood Blood Culture - Final NO GROWTH AFTER 5 DAYS OF INCUBATION. Complete Assessment/Plan Assessment/Plan Small-bowel obstruction Thrombocytosis Metastatic disease Hypertensive urgency, now become hypotension Leukocytosis, unspecified Generalized weakness Intractable nausea and vomiting Pneumonia, unspecified organism Sepsis Plan Continuing current management. status post fluid resuscitation, bolus with normal saline. Now off Vasopressor medication Patient has been upgrade to ICU for close follow up. Anticipate to down grade when BP improved. Continuing with IV antibiotic. Continue on Vancomycin IV pharmacy to dose and Zosyn 3.375gm IV q 8hours We will follow up with culture. Surgery input appreciate. S/p Gastrografin. The test showed no bowel obstruction. Discussed with the patient regarding to rectal spasm. Explained to the patient that is normal in his happen all the time with a muscle contract. Continue flexeril 10mg bid to see if it improved. Down grade to telemetry PT evaluation Encourage to be out of bed and ambulate. This medical document was created using an electronic medical record system with [employer] dictation system. Although this document has been carefully reviewed, there may still be some phonetic and typographical errors. These areas are purely typographical due to imperfections of the software programs, and do not reflect any compromise in the patient's medical care. This medical document was created using an electronic medical record system with [employer] dictation system. Although this document has been carefully reviewed, there may still be some phonetic and typographical errors. These areas are purely typographical due to imperfections of the software programs, and do not reflect any compromise in the patient's medical care. Plan discussed with: Patient My Orders Orders - MAGY BARCLAY MD Procedure Category Date Status Time Vancomycin 1gm/250ml PHA 08/09/25 In Process Kit 15:00 Vancomycin Per DOLORES 08/09/25 In Process Pharmacy Protoc 14:02 Vancomycin,[facility] 08/11/25 Verified 14:00 Date of Service: Aug 10, 2025 Billing Provider: MAGY BARCLAY MD Common Visit Codes: [id number] INP/OBS CARE(HIGH) MAGY BARCLAY MD Aug 10, 2025 11:05
[2025-08-10 11:30] LABS: Glucose 72 mg/dL (74-106)
[2025-08-11] VITALS (9 sets, daily range): BP systolic 100–141; BP diastolic 76–89; PULSE 54–89; RESP 16–18; TEMP 97.2–98.3; O2SAT 97–100
[2025-08-11 06:50] LABS: Hematocrit 29.4 % (36.0-46.0); Hemoglobin 9.3 g/dL (12.2-16.2); Mean Corpuscular Hemoglobin 27.3 pg (28.0-32.0); Mean Corpuscular Volume 86.6 fL (80.0-100.0)
[2025-08-11 06:52] LABS: Potassium 4.4 mmol/L (3.5-5.1)
[2025-08-11 06:53] LABS: Anion Gap 12 (5-15)
[2025-08-11 06:58] LABS: BUN/Creatinine Ratio 8.9 (10.0-20.0); Glucose 77 mg/dL (74-106)
[2025-08-11 07:04] LABS: Blood Urea Nitrogen 8 mg/dL (9-23); Calcium 7.9 mg/dL (8.7-10.4); Carbon Dioxide 14 mmol/L (20-31); Chloride 109 mmol/L (98-107); Sodium 135 mmol/L (136-145)
[2025-08-11 07:51] LABS: Total Cells Counted 100.0 (100)
[2025-08-11] MEDS: ONDANSETRON HCL 4 MG/2 ML VIAL IV PRN (09:58)
--- NOTE | 2025-08-11 12:42 | DVHPN2 ---
Subjective The patient is seen and examined at bedside. Rectal spasm improved. Reviewed: Care Plan, H&P, Labs, Medications, Previous Orders, Radiology Changes from previous H/P or p: No Changes Eyes: No Pain, No Vision change, No Conjunctivae inflammation, No Eyelid inflammation, No Other, No Redness ENT: No Ear pain, No Ear discharge, No Nose pain, No Nose discharge, No Nose congestion, No Mouth pain, No Mouth swelling, No Throat pain, No Throat swelling, No Other Cardiovascular: No Chest Pain, No Palpitations, No Orthopnea, No Paroxysmal Noc. Dyspnea, No Edema, No Lt Headedness, No Other Respiratory: No Cough, No Dry, No Shortness of breath, No SOB with excertion, No Wheezing, No Hemoptysis, No Pleuritic Pain, No Sputum, No Other Gastrointestinal: Nausea, Vomiting Genitourinary: No Dysuria, No Frequency, No Incontinence, No Hematuria, No Retention, No Other Musculoskeletal: No other, No neck pain, No shoulder pain, No arm pain, No back pain, No hand pain, No leg pain, No foot pain Skin: No Rash, No Lesions, No Jaundice, No Bruising, No Other Objective Vitals Vital Signs Date Time Temp Pulse Resp B/P (MAP) Pulse Ox O2 Delivery O2 Flow Rate FiO2 08/11/25 09:59 65 18 117/77 08/11/25 08:55 97.2 100 97.2 08/11/25 08:05 Room Air* 0 21 Intake/Output Intake and Output 08/11/25 07:00 Intake Total 2200 ml Output Total 2240 ml Balance -40 ml Intake Oral 1400 ml IV Total 800 ml Output Urine Total 950 ml Stool Total 500 ml Other 790 ml # Voids 4 General Appearance: Alert, Cooperative, No acute distress HEENT: Atraumatic, PERRLA, EOMI, Mucous membr. moist/pink Neck: Supple Lungs: Clear to auscultation, Normal air movement Cardiovascular: Regular rate, Normal S1, Normal S2, No murmurs, Gallops, Rubs Abdomen: Normal bowel sounds, Soft, No tenderness Neuro: Cranial nerves 3-12 NL Psych/Mental Status: Mental status NL Medications Current Medications Medications Dose Ordered Sig/Sherlyn Route Start Time Stop Time Status Last Admin Dose Admin Pantoprazole Sodium 40 mg DAILY IV 08/04/25 10:00 08/11/25 09:42 40 MG Ondansetron HCl 4 mg Q4HP PRN IV 08/03/25 22:00 08/11/25 09:58 4 MG Docusate Sodium 100 mg BIDPRN PRN PO 08/03/25 22:00 Enoxaparin Sodium 40 mg DAILY SC 08/04/25 10:00 08/11/25 09:42 40 MG Acetaminophen 650 mg Q6HP PRN PO 08/03/25 22:00 Nitroglycerin 0.4 mg Q5MINP PRN SL 08/04/25 00:00 Morphine Sulfate 2 mg Q30M PRN IV 08/04/25 00:00 Labetalol HCl 10 mg Q2HPRN PRN IV 08/04/25 00:15 Hydromorphone HCl 0.5 mg Q4HPRN PRN IV 08/04/25 00:45 08/11/25 09:59 0.5 MG Midodrine 10 mg TID@0600,1200,1800 PO 08/04/25 06:00 08/11/25 06:28 10 MG Potassium Chloride/Dextrose/ Sod Cl 1,000 ml @ 120 mls/hr Q8H20M IV 08/04/25 18:30 08/11/25 00:10 120 MLS/HR Piperacillin Sod/ Tazobactam Sod 100 ml @ 25 mls/hr Q8HR IV 08/05/25 14:00 08/11/25 05:28 25 MLS/HR Vancomycin HCl 0 ml @ 0 mls/hr UD IV 08/05/25 10:00 Acetaminophen/ Hydrocodone Bitart 1 tab Q4HP PRN PO 08/05/25 23:45 08/11/25 04:20 1 TAB Sodium Chloride 10 ml QSHIFT@10,22 IV 08/06/25 22:00 08/11/25 09:42 10 ML Cyclobenzaprine HCl 10 mg BID PO 08/07/25 22:00 08/11/25 09:42 10 MG Vancomycin HCl 250 ml @ 250 mls/hr Q12H IV 08/09/25 15:00 08/11/25 03:29 250 MLS/HR Laboratory Results Laboratory Tests 08/11/25 05:15 Chemistry Test 08/11/25 05:15 Calcium Level 7.9 mg/dL (8.7-10.4) L Microbiology Microbiology Date/Time Source Procedure Growth Status 08/04/25 21:00 Nose MRSA Screen - Final Complete 08/03/25 19:05 Blood Blood Culture - Final NO GROWTH AFTER 5 DAYS OF INCUBATION. Complete Labs and/or images reviewed: Labs reviewed by me Assessment/Plan Assessment/Plan Small-bowel obstruction Thrombocytosis Metastatic disease Hypertensive urgency, now become hypotension Leukocytosis, unspecified Generalized weakness Intractable nausea and vomiting Pneumonia, unspecified organism Sepsis Plan Continuing current management. status post fluid resuscitation, bolus with normal saline. Now off Vasopressor medication Patient has been upgrade to ICU for close follow up. Anticipate to down grade when BP improved. Continuing with IV antibiotic. Continue on Vancomycin IV pharmacy to dose and Zosyn 3.375gm IV q 8hours We will follow up with culture. Surgery input appreciate. S/p Gastrografin. The test showed no bowel obstruction. Discussed with the patient regarding to rectal spasm. Explained to the patient that is normal in his happen all the time with a muscle contract. Continue flexeril 10mg bid to see if it improved. Continue PT/OT Down grade to telemetry PT evaluation Encourage to be out of bed and ambulate. This medical document was created using an electronic medical record system with [employer] dictation system. Although this document has been carefully reviewed, there may still be some phonetic and typographical errors. These areas are purely typographical due to imperfections of the software programs, and do not reflect any compromise in the patient's medical care. This medical document was created using an electronic medical record system with [employer] dictation system. Although this document has been carefully reviewed, there may still be some phonetic and typographical errors. These areas are purely typographical due to imperfections of the software programs, and do not reflect any compromise in the patient's medical care. Plan discussed with: Patient Date of Service: Aug 11, 2025 Billing Provider: MAGY BARCLAY MD Common Visit Codes: [id number] INP/OBS CARE(HIGH) MAGY BARCLAY MD Aug 11, 2025 12:42
[2025-08-12] VITALS (7 sets, daily range): BP systolic 101–116; BP diastolic 66–77; PULSE 53–85; RESP 17–18; TEMP 98–98.6; O2SAT 0–98
[2025-08-12 07:35] LABS: Hematocrit 29.7 % (36.0-46.0); Hemoglobin 9.5 g/dL (12.2-16.2); Mean Corpuscular Hemoglobin 27.1 pg (28.0-32.0); Mean Corpuscular Volume 84.7 fL (80.0-100.0); Nucleated Red Blood Cells % 0.1 %
[2025-08-12 07:47] LABS: Anion Gap 13 (5-15); Potassium 4.9 mmol/L (3.5-5.1); Sodium 136 mmol/L (136-145)
[2025-08-12 07:53] LABS: BUN/Creatinine Ratio 7.5 (10.0-20.0); Blood Urea Nitrogen 7 mg/dL (9-23); Calcium 7.8 mg/dL (8.7-10.4); Carbon Dioxide 14 mmol/L (20-31); Chloride 109 mmol/L (98-107); Glucose 77 mg/dL (74-106)
--- NOTE | 2025-08-12 13:45 | DVHPN2 ---
Subjective The patient is seen and examined at bedside. Rectal spasm improved. Remained weak. Able to walk to the restroom. Reviewed: Care Plan, H&P, Labs, Medications, Previous Orders, Radiology Changes from previous H/P or p: No Changes Eyes: No Pain, No Vision change, No Conjunctivae inflammation, No Eyelid inflammation, No Other, No Redness ENT: No Ear pain, No Ear discharge, No Nose pain, No Nose discharge, No Nose congestion, No Mouth pain, No Mouth swelling, No Throat pain, No Throat swelling, No Other Cardiovascular: No Chest Pain, No Palpitations, No Orthopnea, No Paroxysmal Noc. Dyspnea, No Edema, No Lt Headedness, No Other Respiratory: No Cough, No Dry, No Shortness of breath, No SOB with excertion, No Wheezing, No Hemoptysis, No Pleuritic Pain, No Sputum, No Other Gastrointestinal: Nausea, Vomiting Genitourinary: No Dysuria, No Frequency, No Incontinence, No Hematuria, No Retention, No Other Musculoskeletal: No other, No neck pain, No shoulder pain, No arm pain, No back pain, No hand pain, No leg pain, No foot pain Skin: No Rash, No Lesions, No Jaundice, No Bruising, No Other Objective Vitals Vital Signs Date Time Temp Pulse Resp B/P (MAP) Pulse Ox O2 Delivery O2 Flow Rate FiO2 08/12/25 13:28 64 17 129/82 08/12/25 13:00 98.4 8 98.4 08/12/25 07:30 Room Air* 0 21 Intake/Output Intake and Output 08/12/25 07:00 Intake Total 2900 ml Output Total 303 ml Balance 2597 ml Intake Oral 1050 ml IV Total 1850 ml Output Urine Total 3 ml Stool Total 200 ml Other 100 ml # Voids 4 General Appearance: Alert, Cooperative, No acute distress HEENT: Atraumatic, PERRLA, EOMI, Mucous membr. moist/pink Neck: Supple Lungs: Clear to auscultation, Normal air movement Cardiovascular: Regular rate, Normal S1, Normal S2, No murmurs, Gallops, Rubs Abdomen: Normal bowel sounds, Soft, No tenderness Neuro: Cranial nerves 3-12 NL Psych/Mental Status: Mental status NL Medications Current Medications Medications Dose Ordered Sig/Sherlyn Route Start Time Stop Time Status Last Admin Dose Admin Pantoprazole Sodium 40 mg DAILY IV 08/04/25 10:00 08/12/25 08:56 40 MG Ondansetron HCl 4 mg Q4HP PRN IV 08/03/25 22:00 08/11/25 09:58 4 MG Docusate Sodium 100 mg BIDPRN PRN PO 08/03/25 22:00 Enoxaparin Sodium 40 mg DAILY SC 08/04/25 10:00 08/12/25 08:56 40 MG Acetaminophen 650 mg Q6HP PRN PO 08/03/25 22:00 Nitroglycerin 0.4 mg Q5MINP PRN SL 08/04/25 00:00 Morphine Sulfate 2 mg Q30M PRN IV 08/04/25 00:00 Labetalol HCl 10 mg Q2HPRN PRN IV 08/04/25 00:15 Hydromorphone HCl 0.5 mg Q4HPRN PRN IV 08/04/25 00:45 08/12/25 13:28 0.5 MG Midodrine 10 mg TID@0600,1200,1800 PO 08/04/25 06:00 08/12/25 06:25 10 MG Potassium Chloride/Dextrose/ Sod Cl 1,000 ml @ 120 mls/hr Q8H20M IV 08/04/25 18:30 08/12/25 08:56 120 MLS/HR Piperacillin Sod/ Tazobactam Sod 100 ml @ 25 mls/hr Q8HR IV 08/05/25 14:00 08/12/25 13:36 25 MLS/HR Vancomycin HCl 0 ml @ 0 mls/hr UD IV 08/05/25 10:00 Acetaminophen/ Hydrocodone Bitart 1 tab Q4HP PRN PO 08/05/25 23:45 08/12/25 00:55 1 TAB Sodium Chloride 10 ml QSHIFT@10,22 IV 08/06/25 22:00 08/12/25 08:56 10 ML Cyclobenzaprine HCl 10 mg BID PO 08/07/25 22:00 08/12/25 08:55 10 MG Laboratory Results Laboratory Tests 08/12/25 05:26 Chemistry Test 08/12/25 05:26 Calcium Level 7.8 mg/dL (8.7-10.4) L Microbiology Microbiology Date/Time Source Procedure Growth Status 08/04/25 21:00 Nose MRSA Screen - Final Complete 08/03/25 19:05 Blood Blood Culture - Final NO GROWTH AFTER 5 DAYS OF INCUBATION. Complete Labs and/or images reviewed: Labs reviewed by me Assessment/Plan Assessment/Plan Small-bowel obstruction Thrombocytosis Metastatic disease Hypertensive urgency, now become hypotension Leukocytosis, unspecified Generalized weakness Intractable nausea and vomiting Pneumonia, unspecified organism Sepsis Plan Continuing current management. status post fluid resuscitation, bolus with normal saline. Now off Vasopressor medication Patient has been upgrade to ICU for close follow up. Anticipate to down grade when BP improved. Continuing with IV antibiotic. Continue on Vancomycin IV pharmacy to dose and Zosyn 3.375gm IV q 8hours We will follow up with culture. Surgery input appreciate. S/p Gastrografin. The test showed no bowel obstruction. Discussed with the patient regarding to rectal spasm. Explained to the patient that is normal in his happen all the time with a muscle contract. Continue flexeril 10mg bid to see if it improved. Continue PT/OT Down grade to telemetry PT evaluation Encourage to be out of bed and ambulate. Discharge planning. This medical document was created using an electronic medical record system with [employer] dictation system. Although this document has been carefully reviewed, there may still be some phonetic and typographical errors. These areas are purely typographical due to imperfections of the software programs, and do not reflect any compromise in the patient's medical care. This medical document was created using an electronic medical record system with [employer] dictation system. Although this document has been carefully reviewed, there may still be some phonetic and typographical errors. These areas are purely typographical due to imperfections of the software programs, and do not reflect any compromise in the patient's medical care. Plan discussed with: Patient Date of Service: Aug 12, 2025 Billing Provider: MAGY BARCLAY MD Common Visit Codes: [id number] INP/OBS CARE(HIGH) MAGY BARCLAY MD Aug 12, 2025 13:45
[2025-08-12] MEDS: VANCOMYCIN 750MG KIT 100 ML IV SCH (18:04)
[2025-08-13] VITALS (8 sets, daily range): BP systolic 105–151; BP diastolic 63–88; PULSE 56–103; RESP 17–20; TEMP 97.5–98.9; O2SAT 98–99
[2025-08-13] MEDS: HYDROmorphone HCL 2 MG/ML VL/or syr IV ONE (05:28)
[2025-08-13 06:17] LABS: Hematocrit 30.2 % (36.0-46.0); Hemoglobin 9.8 g/dL (12.2-16.2); Mean Corpuscular Hemoglobin 27.8 pg (28.0-32.0); Mean Corpuscular Volume 85.6 fL (80.0-100.0); Nucleated Red Blood Cells % 0.1 %
[2025-08-13] MEDS: HYDROmorphone HCL 2 MG/ML VL/or syr IV PRN (09:55)
--- NOTE | 2025-08-13 13:39 | DVHPN2 ---
Subjective The patient is seen and examined at bedside. Rectal spasm improved. Remained weak. Able to walk to the restroom. Reviewed: Care Plan, H&P, Labs, Medications, Previous Orders, Radiology Changes from previous H/P or p: No Changes Eyes: No Pain, No Vision change, No Conjunctivae inflammation, No Eyelid inflammation, No Other, No Redness ENT: No Ear pain, No Ear discharge, No Nose pain, No Nose discharge, No Nose congestion, No Mouth pain, No Mouth swelling, No Throat pain, No Throat swelling, No Other Cardiovascular: No Chest Pain, No Palpitations, No Orthopnea, No Paroxysmal Noc. Dyspnea, No Edema, No Lt Headedness, No Other Respiratory: No Cough, No Dry, No Shortness of breath, No SOB with excertion, No Wheezing, No Hemoptysis, No Pleuritic Pain, No Sputum, No Other Gastrointestinal: Nausea, Vomiting Genitourinary: No Dysuria, No Frequency, No Incontinence, No Hematuria, No Retention, No Other Musculoskeletal: No other, No neck pain, No shoulder pain, No arm pain, No back pain, No hand pain, No leg pain, No foot pain Skin: No Rash, No Lesions, No Jaundice, No Bruising, No Other Objective Vitals Vital Signs Date Time Temp Pulse Resp B/P (MAP) Pulse Ox O2 Delivery O2 Flow Rate FiO2 08/13/25 10:25 85 14 96/72 08/13/25 07:30 Room Air* 0 21 08/13/25 05:00 98.2 98 98.2 Intake/Output Intake and Output 08/13/25 07:00 Intake Total 2945 ml Output Total 1579 ml Balance 1366 ml Intake Oral 1145 ml IV Total 1800 ml Output Urine Total 4 ml Stool Total 675 ml Other 900 ml # Voids 2 General Appearance: Alert, Cooperative, No acute distress HEENT: Atraumatic, PERRLA, EOMI, Mucous membr. moist/pink Neck: Supple Lungs: Clear to auscultation, Normal air movement Cardiovascular: Regular rate, Normal S1, Normal S2, No murmurs, Gallops, Rubs Abdomen: Normal bowel sounds, Soft, No tenderness Neuro: Cranial nerves 3-12 NL Psych/Mental Status: Mental status NL Medications Current Medications Medications Dose Ordered Sig/Sherlyn Route Start Time Stop Time Status Last Admin Dose Admin Pantoprazole Sodium 40 mg DAILY IV 08/04/25 10:00 08/13/25 09:58 40 MG Ondansetron HCl 4 mg Q4HP PRN IV 08/03/25 22:00 08/11/25 09:58 4 MG Docusate Sodium 100 mg BIDPRN PRN PO 08/03/25 22:00 Enoxaparin Sodium 40 mg DAILY SC 08/04/25 10:00 08/13/25 09:58 40 MG Acetaminophen 650 mg Q6HP PRN PO 08/03/25 22:00 Nitroglycerin 0.4 mg Q5MINP PRN SL 08/04/25 00:00 Labetalol HCl 10 mg Q2HPRN PRN IV 08/04/25 00:15 Midodrine 10 mg TID@0600,1200,1800 PO 08/04/25 06:00 08/13/25 11:49 10 MG Potassium Chloride/Dextrose/ Sod Cl 1,000 ml @ 120 mls/hr Q8H20M IV 08/04/25 18:30 08/13/25 10:50 120 MLS/HR Piperacillin Sod/ Tazobactam Sod 100 ml @ 25 mls/hr Q8HR IV 08/05/25 14:00 08/13/25 06:36 25 MLS/HR Vancomycin HCl 0 ml @ 0 mls/hr UD IV 08/05/25 10:00 Acetaminophen/ Hydrocodone Bitart 1 tab Q4HP PRN PO 08/05/25 23:45 08/12/25 17:25 1 TAB Sodium Chloride 10 ml QSHIFT@10,22 IV 08/06/25 22:00 08/13/25 09:58 10 ML Cyclobenzaprine HCl 10 mg BID PO 08/07/25 22:00 08/13/25 09:58 10 MG Vancomycin HCl 100 ml @ 100 mls/hr Q12H IV 08/12/25 18:00 08/13/25 05:26 100 MLS/HR Hydromorphone HCl 0.5 mg Q4HPRN PRN IV 08/13/25 09:00 08/13/25 09:55 0.5 MG Laboratory Results Laboratory Tests 08/12/25 05:26 08/13/25 05:40 Microbiology Microbiology Date/Time Source Procedure Growth Status 08/04/25 21:00 Nose MRSA Screen - Final Complete 08/03/25 19:05 Blood Blood Culture - Final NO GROWTH AFTER 5 DAYS OF INCUBATION. Complete Labs and/or images reviewed: Labs reviewed by me Assessment/Plan Assessment/Plan Small-bowel obstruction Thrombocytosis Metastatic disease Hypertensive urgency, now become hypotension Leukocytosis, unspecified Generalized weakness Intractable nausea and vomiting Pneumonia, unspecified organism Sepsis Plan Continuing current management. status post fluid resuscitation, bolus with normal saline. Now off Vasopressor medication Patient has been upgrade to ICU for close follow up. Anticipate to down grade when BP improved. Continuing with IV antibiotic. Continue on Vancomycin IV pharmacy to dose and Zosyn 3.375gm IV q 8hours We will follow up with culture. Surgery input appreciate. S/p Gastrografin. The test showed no bowel obstruction. Discussed with the patient regarding to rectal spasm. Explained to the patient that is normal in his happen all the time with a muscle contract. Continue flexeril 10mg bid to see if it improved. Continue PT/OT Down grade to telemetry PT evaluation Encourage to be out of bed and ambulate. Discharge planning. This medical document was created using an electronic medical record system with [employer] dictation system. Although this document has been carefully reviewed, there may still be some phonetic and typographical errors. These areas are purely typographical due to imperfections of the software programs, and do not reflect any compromise in the patient's medical care. This medical document was created using an electronic medical record system with [employer] dictation system. Although this document has been carefully reviewed, there may still be some phonetic and typographical errors. These areas are purely typographical due to imperfections of the software programs, and do not reflect any compromise in the patient's medical care. Plan discussed with: Patient My Orders Orders - MAGY BARCLAY MD Procedure Category Date Status Time Soft Diet DIET 08/12/25 Transmitted Dinner Vancomycin 750mg Kit PHA 08/12/25 In Process (Vancomycin Hcl) 18:00 Vancomycin,Trough LAB 08/14/25 Verified 03:00 Vancomycin Per DOLORES 08/12/25 In Process Pharmacy Protoc 14:48 Hydromorphone PHA 08/13/25 In Process Injection (Dilaudid 09:00 Creatinine LAB 08/14/25 Verified 03:00 Date of Service: Aug 13, 2025 Billing Provider: MAGY BARCLAY MD Common Visit Codes: [id number] INP/OBS CARE(HIGH) MAGY BARCLAY MD Aug 13, 2025 13:39
[2025-08-14] VITALS (7 sets, daily range): BP systolic 102–133; BP diastolic 64–90; PULSE 45–94; RESP 16–18; TEMP 36.7; O2SAT 95–100
--- NOTE | 2025-08-14 10:31 | DVHDS2 ---
Discharge Summary Date of Admission Aug 03, 2025 at 23:58 Date of Discharge: Aug 14, 2025 Labs/Diagnostic Data: Laboratory Results Test 08/14/25 02:45 08/13/25 05:40 08/12/25 05:26 08/11/25 05:15 Creatinine 0.94 mg/dL (0.550-1.02) Glomerular Filtration Rate Calc 77 mL/min (>90) Vancomycin Level Trough 28.5 ug/mL (5-10) White Blood Count 14.7 10^3/uL (4.4-10.8) Red Blood Count 3.52 10^6/uL (4.0-5.20) Hemoglobin 9.8 g/dL (12.2-16.2) Hematocrit 30.2 % (36.0-46.0) Mean Corpuscular Volume 85.6 fL (80.0-100.0) Mean Corpuscular Hemoglobin 27.8 pg (28.0-32.0) Mean Corpuscular Hemoglobin Concent 32.5 g/dL (32.0-36.0) Red Cell Distribution Width 18.2 % (11.8-14.3) Platelet Count 552 10^3/uL (140-450) Mean Platelet Volume 8.1 fL (6.9-10.8) Neutrophils (%) (Auto) 83.9 % (37.0-80.0) Lymphocytes (%) (Auto) 8.3 % (10.0-50.0) Monocytes (%) (Auto) 7.0 % (0.0-12.0) Eosinophils (%) (Auto) 0.7 % (0.0-7.0) Basophils (%) (Auto) 0.1 % (0.0-2.0) Neutrophils # (Auto) 12.4 10 ^3/uL (1.6-8.6) Lymphocytes # (Auto) 1.2 10 ^3/uL (0.4-5.4) Monocytes # (Auto) 1.0 10 ^3/uL (0-1.3) Eosinophils # (Auto) 0.1 10 ^3/uL (0-0.8) Basophils # (Auto) 0 10 ^3/uL (0-0.2) Nucleated Red Blood Cells 0.1 % Sodium Level 136 mmol/L (136-145) Potassium Level 4.9 mmol/L (3.5-5.1) Chloride Level 109 mmol/L (98-107) Carbon Dioxide Level 14 mmol/L (20-31) Anion Gap 13 (5-15) Blood Urea Nitrogen 7 mg/dL (9-23) BUN/Creatinine Ratio 7.5 (10.0-20.0) Serum Glucose 77 mg/dL (74-106) Calcium Level 7.8 mg/dL (8.7-10.4) Random Vancomycin Level 16.7 ug/mL (5-10) Differential Total Cells Counted 100.0 (100) Neutrophils % (Manual) 82 (37.0-80.0) Band Neutrophils % (Manual) 3 Lymphocytes % (Manual) 10 (10.0-50.0) Monocytes % (Manual) 4 (0-12) Eosinophils % (Manual) 1 (0-7) Basophils % (Manual) 0 (0.0-2.0) Metamyelocytes % (manual) 0 Myelocytes % (Manual) 0 Promyelocytes % (Manual) 0 Blast Cells % (Manual) 0 Reactive Lymphocytes 0 Platelet Estimate Adequate Test 08/06/25 07:50 08/06/25 03:12 08/05/25 16:15 08/04/25 09:23 Prothrombin Time 13.2 sec (9.3-11.8) Prothrombin Time INR 1.28 (0.9-1.15) Activated Partial Thromboplast Time 39.6 SEC (24.5-34.5) Smudge Cells 7 /100 WBC Large Platelets Few Helm Cells Many Polychromasia Slight Poikilocytosis (manual) Slight Anisocytosis (manual) Slight Microcytosis Slight Macrocytosis Slight Total Bilirubin 0.4 mg/dL (0.2-1.0) Aspartate Amino Transferase (AST) 87 U/L (13-40) Alanine Aminotransferase (ALT) 22 U/L (7-40) Alkaline Phosphatase 185 U/L (46-116) Total Protein 6.6 g/dL (5.7-8.2) Albumin 3.6 g/dL (3.2-4.8) Test 08/03/25 20:02 08/03/25 19:05 Troponin I High Sensitivity < 3 ng/L (</=34) Lactic Acid Level 1.5 mmol/L (0.4-2.0) Magnesium Level 2.2 mg/dL (1.6-2.6) Other Laboratory Tests 08/14/25 02:45 08/13/25 05:40 08/12/25 05:26 Brief Hx & Hospital Course: This is a 45 years old female with past medical history of lung cancer with metastasized come to emergency department because intractable nausea and vomiting. The patient was on hospice care for lung cancer with metastasis and has been experience nausea and vomiting episode for one day. She unable to keep anything down including her medication. She also had generalized weakness. Her lab showed WBC of 21.9, platelet of 623. AST 56, ALT 25, blood pressure is 163/112, heart rate 102, temperature 98, saturation oxygen 98%. The chest x- ray in review increase interstitial prominence may be read present pulmonary vascular congestion or viral pneumonia. Abdomen/pelvis CT showed small bowel obstruction with dilated small bowel, more pronounced in the left abdominal wall bowel which measures up to 4.1 cm; the large bowel is compromise; transition may be at the level of the right lower quadrant ostomy; hepatic metastatic disease; pulmonary metastatic disease. The patient was placed on IV antibiotic Rocephin. Subsequently her blood pressure dropped that required vasopressor Levophed. The patient's IV antibiotic was switched to vancomycin and Zosyn. Blood culture x2 is negative. The patient subsequently doing better and able to wean off vasopressor. The patient also found to have small-bowel obstruction. The patient does have colostomy bag. Surgery was consulted. Small-bowel follow- through/Gastrografin was done. It showed:Initial rigger up view of the abdomen and pelvis appears demonstrates no acute process.Contrast is identified within stomach and the small-bowel. It appears to empty into a colostomy bag in the right lower quadrant. No abnormally dilated small bowel.Correlate surgical history for complete colonectomy. The patient is doing better today. However The patient remained very weak and had been working with physical therapy. The patient will be discharged home today with hospice care in a room and board. Activity as tolerated. Diet per home diet. Follow up with primary care physician 1-2 weeks. Follow up with her oncologist per schedule. Physical exam: HEENT: Normocephalic atraumatic pupils equal react to light and accommodation. Extraocular muscles intact, conjunctiva pink, oropharynx moist, no thrush, no exudate. Lymphatic: No lymphadenopathy Cardiovascular exam: S1, S2 was heard. No murmurs, rubs, gallops Lung: Clear on auscultation bilaterally, no wheeze, rale, rhonchi. GI: Abdominal soft, nondistended, nontenderness, positive bowel sounds. Extremity: No crepitus, cyanosis, edema. Pedal pulses present bilateral. Full range of motion. Skin: Normal turgor, no rash. Psych: Alert, oriented x3. Neurology: No focal deficits, cranial nerve II to XII grossly intact. This medical document was created using an electronic medical record system with [employer] computerized dictation system. Although this document has been carefully reviewed, there may still be some phonetic and typographical errors. These areas are purely typographical due to imperfections of the software programs, and do not reflect any compromise in the patient's medical care. Condition at Discharge: Stable Final Diagnosis/Problems List Small-bowel obstruction Thrombocytosis Metastatic disease Hypertensive urgency, now become hypotension Leukocytosis, unspecified Generalized weakness Intractable nausea and vomiting Pneumonia, unspecified organism Sepsis Discharge Disposition: Hospice- Medical Facility Discharge Instruct/Medications Scheduled Amoxicillin & Pot Clavulanate (Augmentin Tablet), 875 MG PO BID Cyclobenzaprine HCl (Cyclobenzaprine Hydrochlo), 10 MG PO BID Midodrine HCl (Midodrine HCl), 10 MG PO TID@0600,1200,1800 Scheduled PRN Docusate Sodium (Docusate Sodium), 100 MG PO BIDPRN PRN Hydrocodone-Acetaminophen (Hydrocodone Bitartrate/AC 5-325 mg), 1 TAB PO Q4HP PRN Discharge Statement: "Patient was advised to return to the ER or call 911 if any headaches, dizziness, shortness of breath, chest pain, abdominal pain, bleeding, fevers, or worsening of medical condition. Patient was counseled about treatment plan, medications, possible side effects, patientverbalized understanding. All questions were answered to the best of my ability. This discharge took greater then 30 minutes in planning, reviewing documentation, counseling the patient, and discussing with other team members." ASSESSMENT ASSESSMENT Assessment Date of Service: Aug 14, 2025 Billing Provider: MAGY BARCLAY MD Common Visit Codes: 79087-ZCH/OBS DISCH DAY >30min MAGY BARCLAY MD Aug 14, 2025 10:31
[2025-08-14] MEDS ORDERED: DOCU-265 PO (10:33)
[2025-08-14] MEDS ORDERED: MID10T PO (10:33)
[2025-08-14] MEDS ORDERED: AUG875T PO (10:33)
[2025-08-14] MEDS ORDERED: CYCL-611 PO (10:33)
[2025-08-14] MEDS ORDERED: HYDR-4902 PO (10:33)
[2025-08-14] MEDS ORDERED: VANCOMYCIN 500mg/100mL 100 ML IV SCH (18:00)
[2025-08-14] MEDS: VANCOMYCIN 500mg/100mL 100 ML IV SCH (19:14)
== END 2025-08-14 19:00 | disposition hospice, home (50) | DRG 720 ==
LOC: ER 17:40 → EDBD 17:40 → ER 21:49 → OVERFLOW 23:58 → TELE-WESTW 08-04 03:20 → ICU CENTRL 08-04 20:18 → TELE-WESTW 08-08 23:30
PROVIDERS: ADMIT Internal Medicine; ATTEND Internal Medicine
PROC: 05HA33Z Insertion of Infusion Device into Left Brachial Vein, Percutaneous Approach (ICD-10-PCS; 2025-08-04)
PROC: B54NZZA Ultrasonography of Left Upper Extremity Veins, Guidance (ICD-10-PCS; 2025-08-04)
PROC: 0D9670Z Drainage of Stomach with Drainage Device, Via Natural or Artificial Opening (ICD-10-PCS; principal; 2025-08-05)
PROC: 05HY33Z Insertion of Infusion Device into Upper Vein, Percutaneous Approach (ICD-10-PCS; 2025-08-06)
PROC: B54NZZA Ultrasonography of Left Upper Extremity Veins, Guidance (ICD-10-PCS; 2025-08-06)
DX: A41.9 Sepsis, unspecified organism (principal); N17.0 Acute kidney failure with tubular necrosis; K56.609 Unspecified intestinal obstruction, unspecified as to partial versus complete obstruction; Z51.5 Encounter for palliative care; J18.9 Pneumonia, unspecified organism; I16.0 Hypertensive urgency; D75.839 Thrombocytosis, unspecified; I95.9 Hypotension, unspecified; K59.4 Anal spasm; Z85.038 Personal history of other malignant neoplasm of large intestine; Z85.118 Personal history of other malignant neoplasm of bronchus and lung; Z87.891 Personal history of nicotine dependence; Z93.3 Colostomy status
CPT/HCPCS: 36415; 36569; 71045; 74176; 74250; 76937; 80048; 80053; 80202; 82565; 83605; 83735; 84484; 85007; 85025; 85027; 85610; 85730; 87040; 87081; 93005; 97163; 99291; G0378; J2405; J2470; J2543